=== PATIENT | male | born 1955 | race Caucasian/White ===

== ENCOUNTER → 2017-08-17 | Outpatient (CLI) | payer MEDICAID ==
[2015-10-18 10:34] VITALS: BMI 29.1
[~2017-08-17] MED LIST: ACE325 PO; ACET-1748 PO; AGGRENOX PO; ALPR-698 PO; AMIODIPINE PO; AMLO-96 PO; AMLO-99 PO; AMLO2.5T74 PO; AMOX-559 PO; ASPI-715 PO; ATEN-65 PO; ATR80PT PO; BUPR-127 PO; CAL25 PO; CALC0.5C9 PO; CEFD300C35 PO; CEFU250 PO; CELEXA; CEP500 PO; CIPR-212 PO; CIT20 PO; CLO75 PO; CLON1 PO; COM14R IH; CYC10 PO; CYCL10TA29 PO; DICY20TA70 PO; DIPH-543 PO; DOC100 PO; DONE10TA89 PO; DONE5TAB74 PO; DOXA4TAB57 PO; DUONEB INH; DUT0.5 PO; DUTA0.5C14 PO; ENOX80DI8 SQ; ENOXAPARIN; ESC10 PO; ESZO2TAB30 PO; EZET10TA41 PO; FERR325T24 PO; FLU20 PO; FLUT16SP19 NS; GAB100 PO; GABA-547 PO; GABA-549 PO; GABA300S PO; GLIM1TAB24 PO; GLIM4TAB50 PO; GLY25 PO; HCTZ25 PO; HYDR-3070 PO; HYDR-3072 PO; HYDR-4309 PO; INSU100V24 SQ; IPR14R INH; LANI SUBQ; LEVE-14 PO; LEVE250T63 PO; LEVE500T88 PO; LEVO250T55 PO; LIB PO; LISI-357 PO; LISI2.5T60 PO; LOP2 PO; LOR5/325 PO; MAGN400T37 PO; MAGN500T6 PO; MEC25 PO; MECL-205 PO; METO-1 PO; METO25TA91 PO; METO25TA93 PO; MULT-1335 PO; NYST100040 PO; OFF COUMADIN; OMEP-153 PO; OMEP-218 PO; ONDA4TAB97 PO; OXYGENHOME INH; PAN20 PO; PARO10TA80 PO; PER PO; PHEN120S16 PO; PHENA200 PO; POTA20TA85 PO; POTT20 PO; PRA20 PO; PRAV40TA77 PO; PRE20 PO; PRE5 PO; PRED-1 PO; PRED5ORA PO; PROM5SYR PO; SER50 PO; SERT25TA87 PO; SIMV-42 PO; SODI325T7 PO; SODI650T7 PO; SUCR1TAB51 PO; THIA100T55 PO; TIO18R IH; TIO18R INH; TRAM-420 PO; WAR1 PO; WAR25 PO; WAR5 PO; WARF-1 PO; WARF5TAB23 PO; WARF6TAB13 PO; WARF7.5T13 PO; WARF7.5T26 PO; [UNRECOGNIZED DRUG - CODE] PO; [UNRECOGNIZED DRUG - CODE] PO; iron PO
[2017-08-17 10:57] LABS: PLATELET COUNT, AUTOMATED 95 K/uL (150-450)
== END ==
LOC: LAB 10:16
PROVIDERS: ATTEND Internal Medicine Nephrology
DX: I12.9 Hypertensive chronic kidney disease with stage 1 through stage 4 chronic kidney disease, or unspecified chronic kidney disease (principal); N18.3 Chronic kidney disease, stage 3 (moderate); N25.81 Secondary hyperparathyroidism of renal origin; E11.29 Type 2 diabetes mellitus with other diabetic kidney complication
CPT/HCPCS: 36415; 82040; 82306; 82310; 82374; 82435; 82565; 82947; 83970; 84100; 84132; 84295; 84520; 85025

== ENCOUNTER → 2017-10-04 | Outpatient (CLI) | payer MEDICAID ==
[2015-10-18 10:34] VITALS: BMI 29.1
--- NOTE | 2017-10-04 12:57 | RADIOLOGY IMAGING REPORT ---
FACILITY: [facility] PATIENT NAME: Christian Kay : 1955 MR: [id number] V: [id number] EXAM DATE: ORDERING PHYSICIAN: LOPEZ DOMÍNGUEZ TECHNOLOGIST: Location: [facility] [place] Patient: Christian Kay : 1955 Visit/Account:[id number] Date of Sevice: 10/04/2017 CHEST W/O CONTRAST Provided history: Solitary pulmonary nodule Additional pertinent history: none TECHNIQUE: Spiral scan was obtained from the lower neck through the lung bases without intravenous co ntrast. Source images were reformatted in the coronal and sagittal planes. Additional series performed today: none One of the following dose optimization techniques was utilized in the performance of this exam: Autom ated exposure control; adjustment of the mA and/or kV according to the patient's size; or use of an i terative reconstruction technique. Specific details can be referenced in the facility's radiology CT exam operational policy. COMPARISON STUDIES: 2 view chest radiograph 12/22/15 and single view 01/08/16. Study of 04/19/16 onl y includes a lateral projection. No prior CT. FINDINGS: Lungs / pleura / marjorie: There are multiple geographic areas of indistinct groundglass attenuation sc attered in both lungs more numerous on the right than left, both central and peripheral in both upper and lower lobes. There is no evidence of cavitation. No confluent airspace disease. Superimposed are several nodules in the right upper lobe, all circumscribed and solid. Large disc and on image 14 7 of series 4 measures 4 x 5 mm. Several additional solid nodules right lower lobe, largest image 22 8 measures 6 x 8 mm. Additional scattered solid nodules in the left upper lobe and left lower lobe. Largest located in the posterior left lower lobe, image 262 measuring 6 x 7 mm. Lower neck: 13 mm hypodense mass deep margin right lobe of the thyroid, likely benign. Mediastinum: negative Heart / pericardium: negative Vessels: negative Lymph nodes: negative Body wall: Benign small sebaceous cyst upper left back. Upper abdomen: Lowermost image reveals a water attenuation cyst probably exophytic from the upper po le right kidney, not further clarified. Adrenal glands negative. Bones: negative IMPRESSION: 1. Multifocal patchy areas of groundglass attenuation both lungs. Chronicity is unclear but not juanito latrice evident on 2 view study 01/08/16. Assuming these are acute, this could be seen in the acute pha se of hypersensitivity pneumonitis as well as viral pneumonia, possibly pneumocystis. Chronically, c onsider DIP and much less likely multifocal adenocarcinoma. 2. Multiple scattered noncalcified pulmonary nodules, the largest defined above. No possibly inflam matory in origin, this is concerning for potential metastatic disease. Largest nodule diameter is up to 6 x 8 mm and may be amenable to further assessment with PET if indicated. At a minimum, this req uires a short-term follow-up CT to assess interval change. Report Dictated By: Raza Doyle MD at 10/04/2017 12:25 PM Report E-Signed By: Raza Doyle MD at 10/04/2017 12:52 PM [id number]
== END ==
LOC: CT 09-29 00:53
PROVIDERS: ATTEND Family Medicine
DX: R91.8 Other nonspecific abnormal finding of lung field (principal)
CPT/HCPCS: 71250

== ENCOUNTER → 2017-10-13 | Outpatient (CLI) | payer MEDICAID ==
[2015-10-18 10:34] VITALS: BMI 29.1
== END ==
LOC: LAB 13:35
PROVIDERS: ATTEND Surgery
DX: C44.219 Basal cell carcinoma of skin of left ear and external auricular canal (principal)
CPT/HCPCS: 88305

== ENCOUNTER → 2017-10-31 | Outpatient (REF) | payer MEDICAID ==
[2015-10-18 10:34] VITALS: BMI 29.1
[2017-10-31 12:27] LABS: INR 4.21
== END ==
LOC: ZZSENDIN 12:03
PROVIDERS: ATTEND Physician Assistant
DX: Z51.81 Encounter for therapeutic drug level monitoring (principal); Z79.01 Long term (current) use of anticoagulants
CPT/HCPCS: 85610

== ENCOUNTER 2017-11-09 02:13 | Day surgery (SDC) | payer MEDICAID ==
[2015-10-18 10:34] VITALS: Ht 177.8 cm; Wt 98.0 kg
[~2017-11-09] VITALS: Ht 177.8 cm; Wt 98.0 kg
[~2017-11-09 02:13] MED LIST changes: +CALC0.5C5 PO; +WARF2.5T62 PO
[2017-11-09 06:28] VITALS: BP 151/91
[2017-11-09] MEDS ORDERED: AMPICILLIN/SULBACT (*) 3 GM VL 3 GM in NS(*) 0.9% 100 ML BAG 100 ML IVPB ONE (06:45)
[2017-11-09] MEDS ORDERED: MIDAZOLAM 2 MG/2 ML VIAL IVP PRN (06:45)
[2017-11-09] MEDS ORDERED: LIDOCAINE/SOD BICARB 8.4% SYR ID ONE (06:45)
[2017-11-09] MEDS ORDERED: NORMOSOL R SOLN(*) 1000 ML BAG 1,000 ML IV PRN (06:45)
[2017-11-09 06:46] LABS: INR 1.05
[2017-11-09] MEDS ORDERED: ROPIVACAINE 0.5% 20 ML VIAL ONE (07:04)
[2017-11-09] MEDS ORDERED: LIDO/EPI 1% MDV 1:100,000 20ML INFIL ONE (07:04)
[2017-11-09] MEDS ORDERED: DEXAMETHASONE SOD 4 MG/ML VIAL ONE (07:18)
[2017-11-09] MEDS ORDERED: PROPOFOL EMUL(*) 10MG/ML 20 ML 20 ML ONE (07:18)
[2017-11-09] MEDS ORDERED: LIDOCAINE MPF 1% 5 ML VIAL ONE (07:18)
[2017-11-09] MEDS ORDERED: fentaNYL CITR 100 MCG/2 ML AMP ONE ×2 (07:18→08:09)
[2017-11-09] MEDS ORDERED: ONDANSETRON 4 MG/2 ML VIAL ONE (07:18)
[2017-11-09] MEDS ORDERED: KETAMINE HCL 200 MG/20 ML MDV ONE (07:21)
[2017-11-09] MEDS ORDERED: GLYCOPYRROLATE 0.2MG/ML 1 ML INJ ONE (07:30)
[2017-11-09] MEDS ORDERED: BACITRACIN OINT 15 GM TUBE TP ONE (08:27)
[2017-11-09] MEDS ORDERED: DOCU-416 PO (09:04)
[2017-11-09] MEDS ORDERED: OXYC-854 PO (09:04)
--- NOTE | 2017-11-09 09:07 | Short(Outpt) Discharge Summary ---
Discharge Summary Reason for Hosp/Final Diag: (1) Basal cell carcinoma of left ear Status: Chronic Hospital Course & Plan: Partial left ear excision for recurrent left ear BCC with invasion into underlying cartilage. Departure Discharge to: Home, Self Care Discharge Instructions Home Meds Active Scripts Docusate Sodium (COLACE) 100 Mg Capsule, 1 CAP PO BID, #30 CAP 0 Refills TAKE WITH A FULL GLASS OF WATER Prov:MINA LO MD 11/09/17 Oxycodone Hcl/Acet 5/325 Mg (ENDOCET 5-325 TABLET) 1 Each Tablet, 1 TAB PO Q4H Y for PAIN, #20 TAB 0 Refills Prov:MINA LO MD 11/09/17 Fluticasone Prop 50 Mcg Ns (FLONASE 50 MCG NS) 16 Gm [place].susp, 1 SPRAY NS BID , #1 BOT Prov:RAHEEM STEIN 04/19/16 Reported Medications Amlodipine Besylate (AMLODIPINE BESYLATE) 10 Mg Tablet, 1 TAB PO QDAY, TAB 11/03/17 Ezetimibe (ZETIA) 10 Mg Tablet, PO QDAY, TAB 11/03/17 Calcitriol (CALCITRIOL) 0.5 Mcg Capsule, PO AND MON, CAPSULE 11/03/17 Warfarin Sodium (COUMADIN) 2.5 Mg Tablet, 2.5 MG PO QT AND Monday11/03/17 Warfarin Sodium (COUMADIN) 5 Mg Tablet, 5 MG PO DAILY take 5 mg every day except MONDAY AND Monday10/20/15 Ferrous Sulfate (IRON) 325 Mg Tablet, 325 MG PO DAILY 09/16/15 Oxygen (OXYGEN) Inha, 2 L INH Y for SHORTNESS OF BREATH, L 09/16/15 Sodium Bicarbonate (SODIUM BICARBONATE) 325 Mg Tablet, 650 MG PO BID 02/06/15 Atorvastatin (LIPITOR) 80 Mg Tab, 1 TAB PO QDAY, TAB 10/31/14 Paroxetine Hcl (PAROXETINE HCL) 10 Mg Tablet, 40 MG PO QDAY 06/12/14 Gabapentin (GABAPENTIN) 300 Mg Capsule, 300 MG PO TID, CAPSULE 06/12/14 Dicyclomine Hcl (DICYCLOMINE HCL) 20 Mg Tablet, 20 MG PO QID 11/19/13 Donepezil Hcl (ARICEPT) 10 Mg Tablet, 10 MG PO QDAY, TAB 11/19/13 Insulin Lispro 100 Un/Ml Vial (HUMALOG 100 U/ML VIAL) 100 Unit/1 Ml Vial, 25 UNIT SQ BEFORE MEALS, VIAL 11/19/13 Insulin Glargine (LANTUS) 100 Unit/Ml Soln, 50 UNIT SUBQ QHS 11/19/13 Levetiracetam (Keppra) 500 Mg Tablet, 500 MG PO QID, 0 Refills 02/03/11 Multivitamins W-Minerals (Multiple Vitamin) 1 Tab Tablet, 1 TAB PO DAILY, 0 Refills 09/03/10 Potassium Chloride (Klor-Con M20) 20 Meq Tab.prt.sr, 20 MEQ PO QAM, 0 Refills 09/03/10 Omeprazole (Omeprazole) 20 Mg Tablet.dr, 40 MG PO QAM, 0 Refills 02/03/11 Discontinued Reported Medications Warfarin Sodium (COUMADIN) 7.5 Mg Tablet, 7.5 MG PO QSAT take 7.5 mg every Monday10/20/15 Amlodipine Besylate (AMLODIPINE BESYLATE) 5 Mg Tablet, 1 TAB PO QDAY, TAB 10/17/15 Dutasteride (AVODART) 0.5 Mg Capsule, 0.5 MG PO QDAY, CAPSULE 02/06/15 Tramadol Hcl (TRAMADOL HCL) 50 Mg Tablet, 50-100 MG PO PRN 02/06/15 Gabapentin (GABAPENTIN) 100 Mg Capsule, 200 MG PO BID, CAPSULE 10/31/14 Insulin Lispro 100 Un/Ml Vial (HUMALOG 100 U/ML VIAL) 100 Unit/1 Ml Vial, 14 UNIT SQ QDAY, VIAL 06/12/14 Prednisone 10 Mg Tab (PREDNISONE 10 MG TAB) 10 Mg Tablet, 5 MG PO QDAY 11/19/13 Follow up Referrals: General Surgery - 11/21/17 @ Surgery, General with Mina Lo Md You have a follow up appointment scheduled with Dr. Lo on 11/21/17, at 4:30pm. Diet: Regular Activity: As Tolerated Special Instructions: Leave the dressings on your head and ear until 11/12/17, then you can remove all dressings and Christian can start showering. Do not scrub the ear, just let soap/shampoo and water run over the ear and gently pat dry when done. Apply antibiotic ointment to the incision/sutures once each day and loosely cover with guaze or if preferred, and if Christian can avoid rubbing/scratching his ear, you could leave it open to air but cover it if Christian will mess with his ear. MINA LO MD Nov 09, 2017 09:07
--- NOTE | 2017-11-09 09:14 | Post Operative Progress Note ---
Post Operative Progress Note Date: Nov 09, 2017 Time: 09:07 Surgeon: Comfort Dictation number: [id number] Anesthesia: LMA by Dr. Minor Pre-Op Diagnosis: Recurrent left ear basal cell skin cancer Post-Op Diagnosis: TANJA, with deep invasion into underlying cartilage Findings: C/W dx Procedure(s): Wide excision of left ear skin cancer with partial left ear removal Specimen Removed:(May be N/A): Left ear, frozen sections of margins Complications: None Fluids: see anesthesia record Estimated Blood Loss: Minimal Date OP Note Dictated: Nov 09, 2017 Time OP Note Dictated: 09:08 LOPEZ LO MD Nov 09, 2017 09:14
[2017-11-09] MEDS ORDERED: AMOX-559 PO (09:53)
[2017-11-09 10:00] VITALS: BP 150/97
[2017-11-09 10:15] VITALS: BP 149/95
[2017-11-09 10:28] VITALS: BP 146/93
[2017-11-09 10:30] VITALS: BP 126/83
--- NOTE | 2017-11-09 13:54 | OPERATIVE REPORT 1 ---
EVENT DATE: November 09, 2017 SURGEON: Mina Moyer M.D. ANESTHESIOLOGIST: Marco Antonio Winter M.D. ANESTHESIA: LMA PREOPERATIVE DIAGNOSIS Recurrent left ear basal cell skin cancer. POSTOPERATIVE DIAGNOSIS Recurrent left ear basal cell skin cancer. PROCEDURE PERFORMED Wide excision of left ear skin cancer with partial left ear removal. COMPLICATIONS None. CONDITION Stable. ESTIMATED BLOOD LOSS Minimal. INDICATIONS This is a 62-year-old gentleman who came to my office with a lesion on his left ear that was constantly draining and bothering him. I had removed a basal cell skin cancer five or six years ago from his left year and he had been doing fine up until several months ago. The lesion was getting bigger. I performed several punch biopsies in the office along the length of the skin lesion, which was quite long, involving a good portion just lateral to the antihelix of his ear. All of the punch biopsies revealed cancer on the entire length of the skin lesion. I then consented him for wide excision of the skin cancer and possible partial ear removal and possible skin grafting to treat this. DESCRIPTION OF PROCEDURE The patient was brought to the operating room and placed supine on the operating table. LMA anesthesia was administered and his left ear, neck and supraclavicular region were prepped and draped in sterile fashion. Time-out was completed. I anesthetized the skin of his left ear with 0.5% bupivacaine plain. I then marked the skin around the grossly visible skin cancer and then made a skin incision in this area with several millimeters of margin on all sides. I then raised the skin up off the underlying subcutaneous tissue and cartilage and when I got to the superior portion where it was ulcerated it appeared to go down into the cartilage as well. I pulled the skin off and this was placed in preservative and sent to pathology. I then removed the cartilage of the crura of the antihelix, which had grossly suspicious cancer involvement. I removed all grossly involved cancer from the underlying cartilage that I could find. Once I got down to what looked like normal cartilage, I sent margins of cartilage and skin from all sides and eventually found that they were all negative. The wound was well vascularized and bleeding but so much of the skin had to be removed and the way the ear was configured a simple graft would not have covered it. I then removed the portion of the antihelix cartilage as well as the cartilage of the helix and lifted skin flaps. After the cartilage was removed, I could easily close the wound. I irrigated and dried the wound and then closed it with running 4-0 Prolene sutures and then cleaned and dried his ear and applied Bacitracin antibiotic ointment to the entire incision and sutures. Basically, the entire posterior third of his ear was removed with this resection to get adequate margins from the invasive basal cell skin cancer. After the entire incision was sutured and coated with antibiotic ointment, I covered the ear with gauze and fluffs and then placed a net dressing on his hand to secure the gauze in place. He was awakened from LMA and transported to the recovery room in stable condition. He tolerated the procedure without any apparent problems. CANDELARIA
== END 2017-11-09 09:46 | disposition home or self-care (01) ==
LOC: OR 02:13
PROVIDERS: ATTEND Surgery
DX: C44.219 Basal cell carcinoma of skin of left ear and external auricular canal (principal); E11.9 Type 2 diabetes mellitus without complications; I10 Essential (primary) hypertension; Z79.01 Long term (current) use of anticoagulants
CPT/HCPCS: 11644; 36415; 36416; 82948; 85610; 88305; 88331; 88332; J0295; J1100; J2001; J2405; J2704; J2795; J3010; J3490; J7050

== ENCOUNTER 2017-12-18 10:37 | Emergency (ER) | payer MEDICAID ==
[2015-10-18 10:34] VITALS: Wt 97.5 kg
[~2017-12-18 10:37] MED LIST changes: +DOCU-416 PO; +OXYC-854 PO
--- NOTE | 2017-12-18 11:00 | ER Report ---
History and Physical Time Seen By MD: 11:00 Hx. of Stated Complaint: PT HAS BEEN VOMITING SINCE YESTERDAY HPI/ROS CHIEF COMPLAINT: Abdominal pain, vomiting HISTORY OF PRESENT ILLNESS: 62-year-old male patient presents to emergency room with complaint of abdominal pain and vomiting. Patient states he has not felt well for the last few days. Patient states yesterday he was having significant amounts of pain. He and his then gave him some Tylenol and ibuprofen to help with the pain. states that the goal was to get him to sleep and that hopefully he would feel better. They state that until 4:00 this morning they've given him 30 tablets of the extra strength Tylenol, 20 tablets of ibuprofen. He states that he feels even worse today. He states he's not been able to keep any food down. Patient states he is diabetic. He is concerned that he may have overdosed with Tylenol and ibuprofen. Patient is also concerned that he is not getting any better. Patient states that he did not eat at all on Monday stat ing that he was not hungry. He believes that could be the underlying cause of him having the abdominal pain and vomiting yesterday, that his blood sugar has gotten too low. REVIEW OF SYSTEMS: Respiratory: No cough, no dyspnea. Cardiovascular: No chest pain, no palpitations. Gastrointestinal: As noted above Musculoskeletal: No back pain. Allergies: Coded Allergies: zolpidem (Verified Adverse Reaction, Severe, CONFUSION AND SUICIDAL IDEATION, 04/19/16) confusion and suicide ideation per patient report Home Meds Active Scripts Ondansetron (ZOFRAN ODT) 4 Mg Tab.rapdis, 4 MG PO Q6H PRN for NAUSEA/VOMITING, #20 TAB.TAVARES Prov:RAHEEM STEIN 12/18/17 Hydrocodone Bit/Acetaminophen (HYDROCODON-ACETAMINOPHEN 5-325) 1 Each Tablet, 1 EACH PO Q4-6H PRN for PAIN, #12 TAB Prov:RAHEEM STEIN 12/18/17 Oxycodone Hcl/Acet 5/325 Mg (ENDOCET 5-325 TABLET) 1 Each Tablet, 1 TAB PO Q4H PRN for PAIN, #20 TAB 0 Refills Prov:LOPEZ LO MD 11/21/17 Amoxicillin/Pot Clav 875-125 Mg Tab (AUGMENTIN 875-125 TABLET) 1 Each Tablet, 1 TAB PO BID, #14 TAB 0 Refills take 1 tablet twice each day until gone (total of 7 days) Prov:LOPEZ LO MD 11/09/17 Docusate Sodium (COLACE) 100 Mg Capsule, 1 CAP PO BID, #30 CAP 0 Refills TAKE WITH A FULL GLASS OF WATER Prov:LOPEZ LO MD 11/09/17 Fluticasone Prop 50 Mcg Ns (FLONASE 50 MCG NS) 16 Gm [place].susp, 1 SPRAY NS BID, #1 BOT Prov:SARITARAHEEM FNP 04/19/16 Reported Medications Tramadol Hcl (TRAMADOL HCL) 50 Mg Tablet, 50-100 MG PO PRN, TAB 12/18/17 Prednisone 10 Mg Tab (PREDNISONE 10 MG TAB) 10 Mg Tablet, 5 MG PO QDAY, TAB 12/18/17 Amlodipine Besylate (AMLODIPINE BESYLATE) 10 Mg Tablet, 1 TAB PO QDAY, TAB 11/03/17 Ezetimibe (ZETIA) 10 Mg Tablet, PO QDAY, TAB 11/03/17 Calcitriol (CALCITRIOL) 0.5 Mcg Capsule, PO AND MON, CAPSULE 11/03/17 Warfarin Sodium (COUMADIN) 2.5 Mg Tablet, 2.5 MG PO QT AND Monday11/03/17 Warfarin Sodium (COUMADIN) 5 Mg Tablet, 5 MG PO DAILY take 5 mg every day except MONDAY AND Monday10/20/15 Ferrous Sulfate (IRON) 325 Mg Tablet, 325 MG PO DAILY 09/16/15 Oxygen (OXYGEN) Inha, 2 L INH PRN for SHORTNESS OF BREATH, L 09/16/15 Sodium Bicarbonate (SODIUM BICARBONATE) 325 Mg Tablet, 650 MG PO BID 02/06/15 Atorvastatin (LIPITOR) 80 Mg Tab, 1 TAB PO QDAY, TAB 10/31/14 Paroxetine Hcl (PAROXETINE HCL) 10 Mg Tablet, 40 MG PO QDAY 06/12/14 Gabapentin (GABAPENTIN) 300 Mg Capsule, 300 MG PO TID, CAPSULE 06/12/14 Dicyclomine Hcl (DICYCLOMINE HCL) 20 Mg Tablet, 20 MG PO QID 11/19/13 Donepezil Hcl (ARICEPT) 10 Mg Tablet, 10 MG PO QDAY, TAB 11/19/13 Insulin Lispro 100 Un/Ml Vial (HUMALOG 100 U/ML VIAL) 100 Unit/1 Ml Vial, 25 UNIT SQ BEFORE MEALS, VIAL 11/19/13 Insulin Glargine (LANTUS) 100 Unit/Ml Soln, 50 UNIT SUBQ QHS 11/19/13 Levetiracetam (Keppra) 500 Mg Tablet, 500 MG PO QID, 0 Refills 02/03/11 Multivitamins W-Minerals (Multiple Vitamin) 1 Tab Tablet, 1 TAB PO DAILY, 0 Refills 09/03/10 Potassium Chloride (Klor-Con M20) 20 Meq Tab.prt.sr, 20 MEQ PO QAM, 0 Refills 09/03/10 Omeprazole (Omeprazole) 20 Mg Tablet.dr, 40 MG PO QAM, 0 Refills 02/03/11 Past Medical/Surgical History Patient has a past medical history of seizures, CVA, dementia, seizures, angina, DVT, hypertension, hyperlipidemia, asthma, pulmonary embolism, blood in stool, anemia, reflux, chronic kidney disease, back pain, difficulty swallowing occasionally, diabetes, lupus anticoagulant, alcohol abuse, depression, skin cancer. Patient has a surgical history of cholecystectomy, colonoscopy. Patient has a family medical history of cancer, stroke. Reviewed Nurses Notes: Yes Hx Smoking: No Smoking Status: Never Smoker Exposure to Second Hand Smoke?: No Hx Substance Use Disorder: No Hx Alcohol Use: No (20 YRS AGO) Constitutional Vital Sign - Last 24 Hours 12/18/17 12/18/17 12/18/17 12/18/17 10:42 10:53 11:00 11:07 Temp 97.9 Pulse 109 103 Resp 20 B/P (MAP) 184/92 (122) 184/92 150/88 (108) Pulse Ox 96 95 O2 Delivery Room Air 12/18/17 12/18/17 12/18/17 12/18/17 11:12 11:30 11:42 12:00 Pulse 100 97 B/P (MAP) 155/86 (109) 154/83 (106) Pulse Ox 95 94 12/18/17 12/18/17 12/18/17 12/18/17 12:30 12:42 13:00 13:05 Pulse 102 B/P (MAP) 147/85 (105) 162/85 (110) Pulse Ox 93 91 12/18/17 12/18/17 12/18/17 12/18/17 13:30 13:35 14:00 14:05 Pulse 114 110 B/P (MAP) 153/92 (112) 147/85 (105) Pulse Ox 91 91 Physical Exam General Appearance: The patient is alert, has no immediate need for airway protection and no current signs of toxicity. Respiratory: Chest is non tender, lungs are clear to auscultation. Cardiac: regular rate and rhythm Gastrointestinal: Abdomen is soft and tender in the right upper quadrant, no masses, bowel sounds normal. Musculoskeletal: Neck: Neck is supple and non tender. Extremities have full range of motion and are non tender. Skin: No rashes or lesions. DIFFERENTIAL DIAGNOSIS: After history and physical exam differential diagnosis was considered for abdominal pain including but not limited to appendicitis, cholecystitis, gastritis and urinary tract infection. Included in this differential is acute kidney failure, liver insult secondary to Tylenol overdose. Medical Decision Making Data Points Result Diagram: 12/18/17 1045 12/18/17 1045 Laboratory Hematology Test 12/18/17 10:45 Red Blood Count 5.01 M/uL (4.00-5.60) Mean Corpuscular Volume 88.2 fL (80.0-96.0) Mean Corpuscular Hemoglobin 29.7 pg (26.0-33.0) Mean Corpuscular Hemoglobin Concent 33.6 g/dL (32.0-36.0) Red Cell Distribution Width 15.3 % (11.5-14.5) Mean Platelet Volume 8.3 fL (7.2-11.1) Neutrophils (%) (Auto) 87.5 % (39.4-72.5) Lymphocytes (%) (Auto) 6.3 % (17.6-49.6) Monocytes (%) (Auto) 4.8 % (4.1-12.4) Eosinophils (%) (Auto) 0.2 % (0.4-6.7) Basophils (%) (Auto) 1.2 % (0.3-1.4) Nucleated RBC Relative Count (auto) 0.0 /100WBC Neutrophils # (Auto) 8.8 K/uL (2.0-7.4) Lymphocytes # (Auto) 0.6 K/uL (1.3-3.6) Monocytes # (Auto) 0.5 K/uL (0.3-1.0) Eosinophils # (Auto) 0.0 K/uL (0.0-0.5) Basophils # (Auto) 0.1 K/uL (0.0-0.1) Nucleated RBC Absolute Count (auto) 0.00 K/uL Sodium Level 138 mmol/L (137-145) Potassium Level 3.3 mmol/L (3.5-5.0) Chloride Level 103 mmol/L (98-107) Carbon Dioxide Level 15 mmol/L (22-30) Blood Urea Nitrogen 17 mg/dl (9-21) Creatinine 2.40 mg/dl (0.66-1.25) Glomerular Filtration Rate Calc 27.4 Random Glucose 260 mg/dl (75-110) Calcium Level 9.2 mg/dl (8.4-10.2) Total Bilirubin 0.5 mg/dl (0.2-1.3) Aspartate Amino Transf (AST/SGOT) 55 U/L (0-35) Alanine Aminotransferase (ALT/SGPT) 54 U/L (0-56) Alkaline Phosphatase 194 U/L (0-126) C-Reactive Protein 0.8 mg/dl (<1.0) Total Protein 7.1 g/dl (6.3-8.2) Albumin 4.5 g/dl (3.5-5.0) Amylase Level 58 U/L (0-110) Lipase 19 U/L (23-300) Acetaminophen Level < 10 ug/ml Chemistry Test 12/18/17 10:45 White Blood Count 10.1 k/uL (4.5-11.0) Red Blood Count 5.01 M/uL (4.00-5.60) Hemoglobin 14.9 g/dL (14.0-18.0) Hematocrit 44.2 % (42.0-52.0) Mean Corpuscular Volume 88.2 fL (80.0-96.0) Mean Corpuscular Hemoglobin 29.7 pg (26.0-33.0) Mean Corpuscular Hemoglobin Concent 33.6 g/dL (32.0-36.0) Red Cell Distribution Width 15.3 % (11.5-14.5) Platelet Count 166 K/uL (150-450) Mean Platelet Volume 8.3 fL (7.2-11.1) Neutrophils (%) (Auto) 87.5 % (39.4-72.5) Lymphocytes (%) (Auto) 6.3 % (17.6-49.6) Monocytes (%) (Auto) 4.8 % (4.1-12.4) Eosinophils (%) (Auto) 0.2 % (0.4-6.7) Basophils (%) (Auto) 1.2 % (0.3-1.4) Nucleated RBC Relative Count (auto) 0.0 /100WBC Neutrophils # (Auto) 8.8 K/uL (2.0-7.4) Lymphocytes # (Auto) 0.6 K/uL (1.3-3.6) Monocytes # (Auto) 0.5 K/uL (0.3-1.0) Eosinophils # (Auto) 0.0 K/uL (0.0-0.5) Basophils # (Auto) 0.1 K/uL (0.0-0.1) Nucleated RBC Absolute Count (auto) 0.00 K/uL Glomerular Filtration Rate Calc 27.4 Calcium Level 9.2 mg/dl (8.4-10.2) Total Bilirubin 0.5 mg/dl (0.2-1.3) Aspartate Amino Transf (AST/SGOT) 55 U/L (0-35) Alanine Aminotransferase (ALT/SGPT) 54 U/L (0-56) Alkaline Phosphatase 194 U/L (0-126) C-Reactive Protein 0.8 mg/dl (<1.0) Total Protein 7.1 g/dl (6.3-8.2) Albumin 4.5 g/dl (3.5-5.0) Amylase Level 58 U/L (0-110) Lipase 19 U/L (23-300) Acetaminophen Level < 10 ug/ml Toxicology Test 12/18/17 10:45 Acetaminophen Level < 10 ug/ml EKG/Imaging Imaging ACUTE ABDOMEN SERIES 3 VIEW HISTORY: ABD PAIN ABDOMINAL SERIES with 3 abdominal films and chest film. No comparisons FINDINGS: Nonspecific bowel gas pattern. No obstructive change. No abnormal mass lesions or calcifications. Bony structures unremarkable. Lumbar DJD changes noted. Status post cholecystectomy Chest film demonstrates no infiltrates or consolidations. No effusions. No parenchymal mass lesions. Cardiac and hilar structures well-maintained. Bony structures unremarkable. IMPRESSION: 1. Unremarkable abdominal series. 2. Negative chest Report Dictated By: Denver Chahal MD at 12/18/2017 1:34 PM Report E-Signed By: Denver Chahal MD at 12/18/2017 1:36 PM ED Course/Re-evaluation ED Course Patient was admitted to an exam room, history and physical were obtained. Differential diagnoses were considered. On examination patient had no obvious abdominal tenderness, bowel sounds were active. Patient had an IV started, received a liter of normal saline, 4 mg Zofran. A CBC, CMP, CRP, Tylenol level were checked. Patient has stated he had taken 30 extra strength Tylenol than the last 24 hours. I was expecting the Tylenol level to be through the roof. Patient had a negative Tylenol level, CBC had a white count of 10,000, CMP showed a creatinine of 2.4, plus time his creatinine was checked was 2.1, and a normal CRP. The patient I believe is very fortunate that he had been vomiting I don't believe that he ingested any of the Tylenol. He did receive a loading dose of Mucomyst. An acute abdominal x-ray was done which was read by the radiologist as unremarkable. I discussed the findings with the patient and his . Patient states she's feeling significantly better at this time. We did give him a by mouth challenge and he was able to drink approximately 12 ounces of water with no emesis. Patient is both feel that he is able to go home. We will go ahead and discharge him home this time. We will give him a prescription for Zofran to help prevent vomiting as well as some hydrocodone with Tylenol to help with pain. I did discuss with him that there to not take any additional Tylenol with the pain medication. They verbalized understanding and agreement with plan. I would like him follow-up with her primary care provider the next 3-4 days. Decision to Disposition Date: Dec 18, 2017 Decision to Disposition Time: 14:15 Depart Departure Latest Vital Signs Vital Signs Date Time Temp Pulse Resp B/P (MAP) Pulse Ox O2 Delivery O2 Flow Rate FiO2 12/18/17 14:05 110 91 12/18/17 14:00 147/85 (105) 12/18/17 10:53 97.9 20 Room Air Impression: Primary Impression: Gastroenteritis Condition: Improved Disposition: HOME OR SELF-CARE New Scripts Ondansetron (ZOFRAN ODT) 4 Mg Tab.rapdis 4 MG PO Q6H PRN for NAUSEA/VOMITING, #20 TAB.TAVARES Prov: RAHEEM STEIN 12/18/17 Hydrocodone Bit/Acetaminophen (HYDROCODON-ACETAMINOPHEN 5-325) 1 Each Tablet 1 EACH PO Q4-6H PRN for PAIN, #12 TAB Prov: RAHEEM STEIN 12/18/17 Patient Instructions: Gastroenteritis (ED) Additional Instructions: Increase fluid intake. Clear liquid diet for the next 24-48 hours. After that you may advance diet as tolerated starting with complex carbohydrates; rice, bread or pasta. Follow up with your primary care provider in the next 3-4 days. Return to the ER if condition worsens. You may take over the counter Pepto Bismol as needed for cramping, diarrhea and discomfort. Keep close eye on your blood sugars. RAHEEM STEIN Dec 18, 2017 11:00
[2017-12-18] MEDS ORDERED: TRAM-420 PO (11:06)
[2017-12-18] MEDS ORDERED: NS(*) 0.9% 1000 ML BAG 1,000 ML IV ONE (11:06)
[2017-12-18] MEDS ORDERED: PRED-1 PO (11:06)
[2017-12-18 11:35] LABS: PLATELET COUNT, AUTOMATED 166 K/uL (150-450)
[2017-12-18] MEDS ORDERED: ACETYLCYS IV ONE (11:35)
[2017-12-18] MEDS ORDERED: D5W IV ONE (11:35)
[2017-12-18] MEDS ORDERED: ONDANSETRON 4 MG/2 ML VIAL IVP ONE (12:10)
--- NOTE | 2017-12-18 13:40 | RADIOLOGY IMAGING REPORT ---
FACILITY: [facility] PATIENT NAME: Christian Kay : 1955 MR: [id number] V: [id number] EXAM DATE: ORDERING PHYSICIAN: RAHEEM STEIN TECHNOLOGIST: Location: [facility] [place] Patient: Christian Kay : 1955 Visit/Account:[id number] Date of Sevice: 12/18/2017 ACUTE ABDOMEN SERIES 3 VIEW HISTORY: ABD PAIN ABDOMINAL SERIES with 3 abdominal films and chest film. No comparisons FINDINGS: Nonspecific bowel gas pattern. No obstructive change. No abnormal mass lesions or calcifications. Bon y structures unremarkable. Lumbar DJD changes noted. Status post cholecystectomy Chest film demonstrates no infiltrates or consolidations. No effusions. No parenchymal mass lesions. Cardiac and hilar structures well-maintained. Bony structures unremarkable. IMPRESSION: 1. Unremarkable abdominal series. 2. Negative chest Report Dictated By: Denver Chahal MD at 12/18/2017 1:34 PM Report E-Signed By: Denver Chahal MD at 12/18/2017 1:36 PM WSN:[id number]
[2017-12-18 14:00] VITALS: BP 147/85
[2017-12-18] MEDS ORDERED: HYDR-385 PO ×2 (14:13→14:27)
[2017-12-18] MEDS ORDERED: ONDA4TAB PO ×2 (14:13→14:27)
== END 2017-12-18 14:26 | disposition home or self-care (01) ==
LOC: ER 10:51
DX: K52.9 Noninfective gastroenteritis and colitis, unspecified (principal); E11.9 Type 2 diabetes mellitus without complications
CPT/HCPCS: 36416; 74022; 82150; 82948; 83690; 85025; 86140; 96361; 96365; 96375; 99284; G0480; J0132; J2405; J7030; J7060; 80329; 82040; 82247; 82310; 82374; 82435; 82565; 82947; 84075; 84132; 84155; 84295; 84450; 84460; 84520

== ENCOUNTER → 2018-01-16 | Outpatient (REF) | payer MEDICARE, MEDICAID ==
[2015-10-18 10:34] VITALS: BMI 29.1
[~2018-01-16] MED LIST changes: +AMLO-111 PO; +AMLO-113 PO; -AMLO-96 PO; -AMLO-99 PO; +HYDR-385 PO; +ONDA4TAB PO
== END ==
LOC: ZZSENDIN 14:51
PROVIDERS: ATTEND Family Medicine
DX: N18.3 Chronic kidney disease, stage 3 (moderate) (principal)
CPT/HCPCS: 82310; 83970

== ENCOUNTER → 2018-02-27 | Outpatient (CLI) | payer MEDICARE, MEDICAID ==
[2015-10-18 10:34] VITALS: BMI 29.1
[~2018-02-27] MED LIST changes: -HYDR-4309 PO; +HYDR-653 PO
[2018-02-27 11:43] LABS: INR 1.52
== END ==
LOC: LAB 10:48
PROVIDERS: ATTEND Family Medicine
DX: D68.8 Other specified coagulation defects (principal)
CPT/HCPCS: 36415; 85610

== ENCOUNTER 2018-05-03 10:33 | Inpatient (IN) | payer MEDICARE, MEDICAID ==
[2015-10-18 10:34] VITALS: Wt 90.9 kg
[~2018-05-03 10:33] MED LIST changes: -AMLO-111 PO; -AMLO-113 PO; +AMLO-125 PO; +AMLO-127 PO
--- NOTE | 2018-05-03 10:58 | ER Report ---
History and Physical Time Seen By MD: 10:54 Hx. of Stated Complaint: PT WAS AT [facility], FELL AND HIT HEAD. STATES HE HAS HAD TWO FALLS IN THE LAST WEEK. HAS BEEN GETTING DIZZY WHEN STANDING HPI/ROS CHIEF COMPLAINT: Fall HISTORY OF PRESENT ILLNESS: Migdalia a 63-year-old male who presents to the emergency department for a fall. Patient states he became dizzy while in the bathroom at [facility], stood up and lost his balance and fell forward striking his face on the toilet. Patient states he did have a positive loss of consciousness, very brief. Patient also states that he has had increased dizziness over the past 1-2 weeks. He also had a fall about 7 days ago striking his forehead on a chair. Patient is normally unsteady, but worsening over the last couple weeks. No nausea or vomiting. Mild frontal headache. No chest pain or shortness of breath. No fevers or chills. Does have a bruise and a small unsuturable lacer ation to the bridge of the nose. REVIEW OF SYSTEMS: Constitutional: No fever, no chills. Eyes: No discharge. ENT: No sore throat. Cardiovascular: No chest pain, no palpitations. Respiratory: No cough, no shortness of breath. Gastrointestinal: No abdominal pain, no vomiting. Genitourinary: No hematuria. Musculoskeletal: As above. Skin: As above. Neurological: As above. Allergies: Coded Allergies: zolpidem (Verified Adverse Reaction, Severe, CONFUSION AND SUICIDAL IDEATION, 04/19/16) confusion and suicide ideation per patient report Home Meds Active Scripts Ondansetron (ZOFRAN ODT) 4 Mg Tab.rapdis, 4 MG PO Q6H PRN for NAUSEA/VOMITING, #20 TAB.TAVARES Prov:RAHEEM STEIN DIRECTOR DIGITAL COMMUNICATIONS 12/18/17 Fluticasone Prop 50 Mcg Ns (FLONASE 50 MCG NS) 16 Gm [place].susp, 1 SPRAY NS BID, #1 BOT Prov:RAHEEM STEIN [facility] 04/19/16 Reported Medications Warfarin Sodium (WARFARIN SODIUM) 5 Mg Tablet, 5 MG PO SuTuThSa, TAB 05/03/18 Warfarin Sodium (WARFARIN SODIUM) 5 Mg Tablet, 2.5 MG PO MOWEDFRI, TAB 05/03/18 Paroxetine Hcl (PAXIL) 20 Mg Tablet, 40 MG PO QDAY, TAB 05/03/18 Calcitriol (CALCITRIOL) 0.5 Mcg Capsule, PO DIRECTED, CAPSULE MWF 11/03/17 Ferrous Sulfate (IRON) 325 Mg Tablet, 325 MG PO DAILY 09/16/15 Oxygen (OXYGEN) Inha, 2 L INH PRN for SHORTNESS OF BREATH, L 09/16/15 Sodium Bicarbonate (SODIUM BICARBONATE) 325 Mg Tablet, 650 MG PO BID 02/06/15 Atorvastatin (LIPITOR) 80 Mg Tab, 1 TAB PO HS, TAB 10/31/14 Insulin Lispro 100 Un/Ml Vial (HUMALOG 100 U/ML VIAL) 100 Unit/1 Ml Vial, 25 UNIT SQ BEFORE MEALS, VIAL 11/19/13 Insulin Glargine (LANTUS) 100 Unit/Ml Soln, 50 UNIT SUBQ QHS 11/19/13 Levetiracetam (Keppra) 500 Mg Tablet, 500 MG PO QID, 0 Refills 02/03/11 Multivitamins W-Minerals (Multiple Vitamin) 1 Tab Tablet, 1 TAB PO DAILY, 0 Refills 09/03/10 Omeprazole (Omeprazole) 20 Mg Tablet.dr, 40 MG PO QAM, 0 Refills 02/03/11 Discontinued Reported Medications Tramadol Hcl (TRAMADOL HCL) 50 Mg Tablet, 50-100 MG PO PRN, TAB 12/18/17 Prednisone 10 Mg Tab (PREDNISONE 10 MG TAB) 10 Mg Tablet, 5 MG PO QDAY, TAB 12/18/17 Amlodipine Besylate (AMLODIPINE BESYLATE) 10 Mg Tablet, 1 TAB PO QDAY, TAB 11/03/17 Ezetimibe (ZETIA) 10 Mg Tablet, PO QDAY, TAB 11/03/17 Warfarin Sodium (COUMADIN) 2.5 Mg Tablet, 2.5 MG PO QT AND Monday11/03/17 Warfarin Sodium (COUMADIN) 5 Mg Tablet, 5 MG PO DAILY take 5 mg every day except MONDAY AND Monday10/20/15 Paroxetine Hcl (PAROXETINE HCL) 10 Mg Tablet, 40 MG PO QDAY 06/12/14 Gabapentin (GABAPENTIN) 300 Mg Capsule, 300 MG PO TID, CAPSULE 06/12/14 Dicyclomine Hcl (DICYCLOMINE HCL) 20 Mg Tablet, 20 MG PO QID 11/19/13 Donepezil Hcl (ARICEPT) 10 Mg Tablet, 10 MG PO QDAY, TAB 11/19/13 Potassium Chloride (Klor-Con M20) 20 Meq Tab.prt.sr, 20 MEQ PO QAM, 0 Refills 09/03/10 Discontinued Scripts Hydrocodone Bit/Acetaminophen (HYDROCODON-ACETAMINOPHEN 5-325) 1 Each Tablet, 1 EACH PO Q4-6H PRN for PAIN, #12 TAB Prov:SARITARAHEEM DIRECTOR DIGITAL COMMUNICATIONS 12/18/17 Oxycodone Hcl/Acet 5/325 Mg (ENDOCET 5-325 TABLET) 1 Each Tablet, 1 TAB PO Q4H PRN for PAIN, #20 TAB 0 Refills Prov:LOPEZ LO MD 11/21/17 Amoxicillin/Pot Clav 875-125 Mg Tab (AUGMENTIN 875-125 TABLET) 1 Each Tablet, 1 TAB PO BID, #14 TAB 0 Refills take 1 tablet twice each day until gone (total of 7 days) Prov:LOPEZ LO MD 11/09/17 Docusate Sodium (COLACE) 100 Mg Capsule, 1 CAP PO BID, #30 CAP 0 Refills TAKE WITH A FULL GLASS OF WATER Prov:LOPEZ LO MD 11/09/17 Past Medical/Surgical History The patient has a past medical and surgical history of seizures, CVA 2, dementia, tonic-clonic seizures, angina, DVT, hypertension, hypertension, hypercholesterolemia, shortness of breath, chronic oxygen use, asthma, pulmonary embolus, frequent diarrhea, colonoscopy, anemia, GERD, elevated LFTs, poor renal function, arthritis, back pain, full dentures, glasses, difficulty swallowing, insulin-dependent diabetic, lupus anticoagulant, hematocrit brain injury, anxiety, suicide attempt, skin cancer, cholecystectomy. Reviewed Nurses Notes: Yes Hx Smoking: No Smoking Status: Never Smoker Exposure to Second Hand Smoke?: No Hx Substance Use Disorder: No Hx Alcohol Use: No (20 YRS AGO) Constitutional Vital Sign - Last 24 Hours 05/03/18 05/03/18 05/03/18 05/03/18 10:39 10:45 11:00 11:15 Temp 98.6 Pulse 132 128 123 Resp 18 12 11 B/P (MAP) 138/85 131/90 (104) 130/86 (101) 124/87 (99) Pulse Ox 90 90 91 O2 Delivery Room Air 05/03/18 05/03/18 05/03/1817/19 11:45 12:00 12:15 12:30 Pulse 118 115 Resp 21 20 B/P (MAP) 139/91 (107) 144/88 (106) 136/93 (107) 132/97 (109) Pulse Ox 86 87 05/03/18 05/03/18 05/03/18 05/03/18 12:45 12:50 13:00 13:15 Pulse 110 Resp 23 B/P (MAP) 136/89 (105) 119/83 (95) 124/84 (97) Pulse Ox 89 05/03/18 05/03/18 05/03/18 05/03/18 13:20 13:30 13:45 13:50 Pulse 100 103 Resp 19 30 B/P (MAP) 136/89 (105) 134/98 (110) Pulse Ox 90 91 Physical Exam General Appearance: The patient is alert, has no immediate need for airway protection and no signs of toxicity. Eyes: Pupils equal and round no pallor or injection. EOMs intact. ENT, Mouth: Mucous membranes are dry, geographic tongue. Respiratory: There are no retractions, lungs are clear to auscultation. Cardiovascular: Regular rate and rhythm, no murmurs, clicks or rubs. Gastrointestinal: Abdomen is soft and non tender, no masses, bowel sounds normal. Neurological: Alert and oriented 4. Moving all extremities. Following all commands. No focal neuro deficits. Skin: Contusion and nonsuturable laceration to the bridge and nose. Bleeding controlled. Musculoskeletal: C-spine tenderness at the level of C5-C7. No crepitus or obvious deformities. Extremities are nontender, nonswollen and have full range of motion. Mild tenderness to the right wrist, no deformities or significant pain. Positive supination pronation without discomfort. DIFFERENTIAL DIAGNOSIS: After history and physical exam differential diagnosis was considered for subarachnoid bleed, subdural bleed, nasal fracture, facial fractures, cervical spine fracture cervical strain, contusion, subluxation. Medical Decision Making Data Points Result Diagram: 05/03/18 1051 05/03/18 1051 Laboratory Hematology Test 05/03/18 00:00 05/03/18 10:51 05/03/18 12:50 Magnesium Level 0.8 mg/dl (1.7-2.2) Red Blood Count 5.39 M/uL (4.00-5.60) Mean Corpuscular Volume 89.3 fL (80.0-96.0) Mean Corpuscular Hemoglobin 29.8 pg (26.0-33.0) Mean Corpuscular Hemoglobin Concent 33.4 g/dL (32.0-36.0) Red Cell Distribution Width 14.2 % (11.5-14.5) Mean Platelet Volume 8.3 fL (7.2-11.1) Neutrophils (%) (Auto) 63.2 % (39.4-72.5) Lymphocytes (%) (Auto) 24.6 % (17.6-49.6) Monocytes (%) (Auto) 8.1 % (4.1-12.4) Eosinophils (%) (Auto) 3.0 % (0.4-6.7) Basophils (%) (Auto) 1.1 % (0.3-1.4) Nucleated RBC Relative Count (auto) 0.0 /100WBC Neutrophils # (Auto) 5.1 K/uL (2.0-7.4) Lymphocytes # (Auto) 2.0 K/uL (1.3-3.6) Monocytes # (Auto) 0.7 K/uL (0.3-1.0) Eosinophils # (Auto) 0.2 K/uL (0.0-0.5) Basophils # (Auto) 0.1 K/uL (0.0-0.1) Nucleated RBC Absolute Count (auto) 0.00 K/uL Prothrombin Time 30.1 seconds (12.0-14.4) Prothromb Time International Ratio 2.80 Activated Partial Thromboplast Time 92 seconds (23-35) Sodium Level 140 mmol/L (137-145) Potassium Level 2.9 mmol/L (3.5-5.0) Chloride Level 107 mmol/L (98-107) Carbon Dioxide Level 18 mmol/L (22-30) Blood Urea Nitrogen 15 mg/dl (9-21) Creatinine 2.80 mg/dl (0.66-1.25) Glomerular Filtration Rate Calc 22.9 Random Glucose 253 mg/dl (75-110) Calcium Level 9.1 mg/dl (8.4-10.2) Total Bilirubin 0.6 mg/dl (0.2-1.3) Aspartate Amino Transf (AST/SGOT) 53 U/L (0-35) Alanine Aminotransferase (ALT/SGPT) 41 U/L (0-56) Alkaline Phosphatase 186 U/L (0-126) Total Protein 6.3 g/dl (6.3-8.2) Albumin 3.6 g/dl (3.5-5.0) Lipase 27 U/L (23-300) Urine Color Yellow Urine Clarity Clear Urine pH 6.0 pH (4.8-9.5) Urine Specific [place] 1.009 Urine Protein Negative mg/dL (NEGATIVE) Urine Glucose (UA) Negative mg/dL (NEGATIVE) Urine Ketones Negative mg/dL (NEGATIVE) Urine Blood Negative (NEGATIVE) Urine Nitrite Negative (NEGATIVE) Urine Bilirubin Negative (NEGATIVE) Urine Urobilinogen Negative mg/dL (0.2-1.9) Urine Leukocyte Esterase Negative (NEGATIVE) Urine RBC <1 /HPF (0-2/HPF) Urine WBC <1 /HPF (0-5/HPF) Urine Squamous Epithelial Cells None /LPF (NONE-FEW) Urine Bacteria Negative /HPF (NONE-FEW) Urine Mucus None /HPF (NONE-FEW) Chemistry Test 05/03/18 00:00 05/03/18 10:51 05/03/18 12:50 Magnesium Level 0.8 mg/dl (1.7-2.2) White Blood Count 8.1 k/uL (4.5-11.0) Red Blood Count 5.39 M/uL (4.00-5.60) Hemoglobin 16.1 g/dL (14.0-18.0) Hematocrit 48.1 % (42.0-52.0) Mean Corpuscular Volume 89.3 fL (80.0-96.0) Mean Corpuscular Hemoglobin 29.8 pg (26.0-33.0) Mean Corpuscular Hemoglobin Concent 33.4 g/dL (32.0-36.0) Red Cell Distribution Width 14.2 % (11.5-14.5) Platelet Count 170 K/uL (150-450) Mean Platelet Volume 8.3 fL (7.2-11.1) Neutrophils (%) (Auto) 63.2 % (39.4-72.5) Lymphocytes (%) (Auto) 24.6 % (17.6-49.6) Monocytes (%) (Auto) 8.1 % (4.1-12.4) Eosinophils (%) (Auto) 3.0 % (0.4-6.7) Basophils (%) (Auto) 1.1 % (0.3-1.4) Nucleated RBC Relative Count (auto) 0.0 /100WBC Neutrophils # (Auto) 5.1 K/uL (2.0-7.4) Lymphocytes # (Auto) 2.0 K/uL (1.3-3.6) Monocytes # (Auto) 0.7 K/uL (0.3-1.0) Eosinophils # (Auto) 0.2 K/uL (0.0-0.5) Basophils # (Auto) 0.1 K/uL (0.0-0.1) Nucleated RBC Absolute Count (auto) 0.00 K/uL Prothrombin Time 30.1 seconds (12.0-14.4) Prothromb Time International Ratio 2.80 Activated Partial Thromboplast Time 92 seconds (23-35) Glomerular Filtration Rate Calc 22.9 Calcium Level 9.1 mg/dl (8.4-10.2) Total Bilirubin 0.6 mg/dl (0.2-1.3) Aspartate Amino Transf (AST/SGOT) 53 U/L (0-35) Alanine Aminotransferase (ALT/SGPT) 41 U/L (0-56) Alkaline Phosphatase 186 U/L (0-126) Total Protein 6.3 g/dl (6.3-8.2) Albumin 3.6 g/dl (3.5-5.0) Lipase 27 U/L (23-300) Urine Color Yellow Urine Clarity Clear Urine pH 6.0 pH (4.8-9.5) Urine Specific [place] 1.009 Urine Protein Negative mg/dL (NEGATIVE) Urine Glucose (UA) Negative mg/dL (NEGATIVE) Urine Ketones Negative mg/dL (NEGATIVE) Urine Blood Negative (NEGATIVE) Urine Nitrite Negative (NEGATIVE) Urine Bilirubin Negative (NEGATIVE) Urine Urobilinogen Negative mg/dL (0.2-1.9) Urine Leukocyte Esterase Negative (NEGATIVE) Urine RBC <1 /HPF (0-2/HPF) Urine WBC <1 /HPF (0-5/HPF) Urine Squamous Epithelial Cells None /LPF (NONE-FEW) Urine Bacteria Negative /HPF (NONE-FEW) Urine Mucus None /HPF (NONE-FEW) Coagulation Test 05/03/18 10:51 Prothrombin Time 30.1 seconds Prothromb Time International Ratio 2.80 Activated Partial Thromboplast Time 92 seconds Urinalysis Test 05/03/18 12:50 Urine Color Yellow Urine Clarity Clear Urine pH 6.0 pH (4.8-9.5) Urine Specific [place] 1.009 Urine Protein Negative mg/dL (NEGATIVE) Urine Glucose (UA) Negative mg/dL (NEGATIVE) Urine Ketones Negative mg/dL (NEGATIVE) Urine Blood Negative (NEGATIVE) Urine Nitrite Negative (NEGATIVE) Urine Bilirubin Negative (NEGATIVE) Urine Urobilinogen Negative mg/dL (0.2-1.9) Urine Leukocyte Esterase Negative (NEGATIVE) Urine RBC <1 /HPF (0-2/HPF) Urine WBC <1 /HPF (0-5/HPF) Urine Squamous Epithelial Cells None /LPF (NONE-FEW) Urine Bacteria Negative /HPF (NONE-FEW) Urine Mucus None /HPF (NONE-FEW) EKG/Imaging EKG Interpretation 12 lead EKG: Time of EKG 1138. Rhythm: Sinus tachycardia, ventricular rate 117 bpm. [place]: normal QRS: normal ST segments: No ST depression or elevation identified. No significant changes from the 04/19/2016 EKG. Imaging PATIENT NAME: Chrisitan Kay : 1955 MR: [id number] V: [id number] EXAM DATE: ORDERING PHYSICIAN: BYRON ROSS TECHNOLOGIST: Location: [facility] [place] Patient: Christian Kay : 1955 Visit/Account:[id number] Date of Sevice: 05/03/2018 EXAMINATION: Portable chest radiograph single view at 11:17 AM. HISTORY: Fall. Trauma. COMPARISON: Acute abdomen series from 12/18/2017. FINDINGS: A single portable AP view of the chest is obtained. Lines/tubes: None. Lungs/pleura: No focal consolidation or pleural effusion. No evidence of pneumothorax. Heart: Negative. Mediastinum: Negative. Bony structures/body wall: Negative. IMPRESSION: No radiographic evidence of acute cardiopulmonary disease. Report Dictated By: Dandy Kline MD at 05/03/2018 12:27 PM Report E-Signed By: Dandy Kline MD at 05/03/2018 12:31 PM WSN:[id number] Location: [facility] [place] Patient: Christian Kay : 1955 Visit/Account:[id number] Date of Sevice: 05/03/2018 EXAMINATION: CT Head without intravenous contrast CT Face without intravenous contrast CT Cervical spine without intravenous contrast HISTORY: Trauma. TECHNIQUE: Head: Axial images were obtained from the skull base to the vertex without intravenous contrast. Sagittal and coronal reformatted images are also submitted. Face: Axial images were obtained from the superior aspect of the orbits through the inferior aspect of mandible. Coronal and sagittal reformatted images were obtained from the axial source data. Cervical spine: Axial images were obtained from the skull base through the upper thoracic spine without IV contrast administration. Coronal and sagittal reformatted images were obtained from the axial source data. One of the following dose optimization techniques was utilized in the performance of this exam: Automated exposure control; adjustment of the mA and/or kV according to the patient's size; or use of an iterative reconstruction technique. Specific details can be referenced in the facility's radiology CT exam operational policy. COMPARISON: Head CT dated 04/19/2016. FINDINGS: HEAD: Brain volume: Mild generalized volume loss. Ventricles: Negative. Acute ischemic changes: None. Hemorrhage: None. Masses / edema: None. Rich-white: Encephalomalacia/gliosis in the right parietal and occipital lobes. White matter: Mild chronic small vessel ischemic changes. Vessels: Negative. Extra-axial: Stable 1.5 x 0.6 x 1.2 cm meningioma overlying the right sylvian fissure (axial image 49; coronal image 39). Calvarium / skull base: Negative. FACE: Soft Tissues: Negative. Mandible / TMJ: Negative. Maxillae / pterygoid plates: Negative. Zygoma / zygomatic arches: Negative. Orbits: Negative. Nasal bones / nasal septum: Leftward nasal septal deviation. Otherwise negative. Frontal bones: Negative. Sinuses: Negative. CERVICAL SPINE: Alignment: Reversal of the normal lordosis. 3 mm of anterior listhesis of C3 over C4 and C4 over C5. Mild convex leftward curvature. Cranio-cervical junction: Negative. Vertebral bodies: Negative. Posterior elements: Multilevel facet hypertrophy. Otherwise negative. Hardware: None. Disc Spaces: Multilevel degenerative disc disease. Soft tissues: No prevertebral soft tissue swelling. 1.3 cm right posterior thyroid nodule. Subcentimeter left thyroid nodule. Mild calcified plaque in the carotid arteries. Visualized upper chest: Negative. IMPRESSION: 1. No acute intracranial abnormality. 2. No acute maxillofacial fracture. 3. No acute cervical spine fracture. 4. Chronic right parietal and occipital infarctions. 5. Stable small meningioma overlying the right sylvian fissure measuring 1.5 x 0.6 x 1.2 cm (axial image 49; coronal image 39). 6. Multilevel degenerative disc disease and facet hypertrophy in the cervical spine with multiple alignment abnormalities. 7. Bilateral thyroid nodules measuring up to 1.3 cm on the right. Report Dictated By: Byron Sanchez MD at 05/03/2018 12:10 PM Report E-Signed By: Byron Sanchez MD at 05/03/2018 12:26 P ED Course/Re-evaluation Clinical Indication for ER IV: Hydration, IV Access ED Course The patient was admitted to room. A history and physical were obtained. Differential diagnoses were considered. IV was started. A CBC, CMP, troponin were obtained. EKG showing sinus tachycardia. A 500 mL normal saline bolus was given, 500 mL normal saline at 125 an hour. CBC unremarkable, chemistry showing potassium 2.9, magnesium 0.8, creatinine 2.80, glucose 253, alk phosphatase 186. INR 2.8, negative catheter UA. A history of the review of the patient's lab [facility] does indicate that the potassium and the magnesium are out of the normal range for the patient, the creatinine is within the patient's normal range. A two-view chest x-ray was negative for any acute cardiopulmonary process. A CT of the facial bones, head and cervical spine were negative for any acute osseous abnormalities. No intracranial bleed. Patient was given 20 no purulence by mouth potassium, as well as 20 mEq IV potassium. Patient was given 2 g IV magnesium. I did recommend an admission the patient's unsteadiness could be secondary to the low potassium and magnesium, I did speak with Dr. Tico Goldstein the hospitalist on- call, he is accepting the patient into the hospital services. The patient was agreeable to an admission. 05/03/2018 11:18:32 am patient did have C-spine tenderness, c-collar placed. 05/03/2018 1:46:52 pm I did speak with Dr. Tico Goldstein, the hospitalist on-call, he's etc. the patient into the hospital services for fall, hypokalemia, hypmagnesemia. Decision to Disposition Date: May 03, 2018 Decision to Disposition Time: 13:46 Depart Departure Latest Vital Signs Vital Signs Date Time Temp Pulse Resp B/P (MAP) Pulse Ox O2 Delivery O2 Flow Rate FiO2 05/03/18 13:50 103 30 91 05/03/18 13:45 134/98 (110) 05/03/18 10:39 98.6 Room Air Impression: Primary Impression: Hypokalemia Additional Impressions: Fall Hypomagnesemia Condition: Improved Disposition: Admitted from ER Referrals: LOPEZ DOMÍNGUEZ MD (PCP) Problem Qualifiers Additional Impressions: Fall Encounter type: initial encounter Qualified Codes: W19.XXXA - Unspecified fall, initial encounter BYRON ROSS DIRECTOR DIGITAL COMMUNICATIONS-BC May 03, 2018 10:58
[2018-05-03] MEDS ORDERED: NS(*) 0.9% 500 ML BAG 500 ML IV ONE (11:13)
[2018-05-03] MEDS ORDERED: DIPHTH/TETANUS/ACEL. PERTUSSIS IM ONE (11:15)
[2018-05-03 11:22] LABS: PLATELET COUNT, AUTOMATED 170 K/uL (150-450)
[2018-05-03 11:27] LABS: INR 2.8
[2018-05-03] MEDS ORDERED: KCL (*) 20 MEQ/100 ML PREMIX 100 ML IV SCH (11:35)
[2018-05-03] MEDS ORDERED: fentaNYL CITR 100 MCG/2 ML AMP IVP ONE (11:35)
[2018-05-03] MEDS ORDERED: POTASSIUM CHL 20 MEQ TABCR PO ONE (11:35)
--- NOTE | 2018-05-03 11:44 | EKG ---
FACILITY: [facility] - [place] PATIENT NAME: SHARDA RIGGS : [id number] MR: [id number] V: [id number] EXAM DATE: ORDERING PHYSICIAN: DUANE ROSS TECHNOLOGIST: MARCEL Cortés Reason : FALL Blood Pressure : / mmHG Vent. Rate : 117 BPM Atrial Rate : 117 BPM P-R Int : 140 ms QRS Dur : 090 ms QT Int : 342 ms P-R-T Axes : 034 067 020 degrees QTc Int : 477 ms Sinus tachycardia Nonspecific ST-T findings inferior leads Decreased R wave progression anteriorly Confirmed by IWONA PEREZ ([id number]) on 05/03/2018 4:33:01 PM Referred By: Confirmed By:IWONA PEREZ
[2018-05-03] MEDS ORDERED: MAGNESIUM SUL* 2 GM/50 ML IVPB 50 ML IVPB ONE ×2 (12:10→21:30)
--- NOTE | 2018-05-03 12:31 | RADIOLOGY IMAGING REPORT ---
FACILITY: [facility] - [place] PATIENT NAME: Christian Kay : 1955 MR: [id number] V: [id number] EXAM DATE: ORDERING PHYSICIAN: DUANE ROSS TECHNOLOGIST: Location: [facility] Patient: Christian Kay : 1955 Visit/Account:[id number] Date of Sevice: 05/03/2018 EXAMINATION: CT Head without intravenous contrast CT Face without intravenous contrast CT Cervical spine without intravenous contrast HISTORY: Trauma. TECHNIQUE: Head: Axial images were obtained from the skull base to the vertex without intravenous contrast. Sa gittal and coronal reformatted images are also submitted. Face: Axial images were obtained from the superior aspect of the orbits through the inferior aspect of mandible. Coronal and sagittal reformatted images were obtained from the axial source data. Cervical spine: Axial images were obtained from the skull base through the upper thoracic spine with out IV contrast administration. Coronal and sagittal reformatted images were obtained from the axial source data. One of the following dose optimization techniques was utilized in the performance of this exam: Autom ated exposure control; adjustment of the mA and/or kV according to the patient's size; or use of an i terative reconstruction technique. Specific details can be referenced in the facility's radiology C T exam operational policy. COMPARISON: Head CT dated 04/19/2016. FINDINGS: HEAD: Brain volume: Mild generalized volume loss. Ventricles: Negative. Acute ischemic changes: None. Hemorrhage: None. Masses / edema: None. Rich-white: Encephalomalacia/gliosis in the right parietal and occipital lobes. White matter: Mild chronic small vessel ischemic changes. Vessels: Negative. Extra-axial: Stable 1.5 x 0.6 x 1.2 cm meningioma overlying the right sylvian fissure (axial image 4 9; coronal image 39). Calvarium / skull base: Negative. FACE: Soft Tissues: Negative. Mandible / TMJ: Negative. Maxillae / pterygoid plates: Negative. Zygoma / zygomatic arches: Negative. Orbits: Negative. Nasal bones / nasal septum: Leftward nasal septal deviation. Otherwise negative. Frontal bones: Negative. Sinuses: Negative. CERVICAL SPINE: Alignment: Reversal of the normal lordosis. 3 mm of anterior listhesis of C3 over C4 and C4 over C5. Mild convex leftward curvature. Cranio-cervical junction: Negative. Vertebral bodies: Negative. Posterior elements: Multilevel facet hypertrophy. Otherwise negative. Hardware: None. Disc Spaces: Multilevel degenerative disc disease. Soft tissues: No prevertebral soft tissue swelling. 1.3 cm right posterior thyroid nodule. Subcenti meter left thyroid nodule. Mild calcified plaque in the carotid arteries. Visualized upper chest: Negative. IMPRESSION: 1. No acute intracranial abnormality. 2. No acute maxillofacial fracture. 3. No acute cervical spine fracture. 4. Chronic right parietal and occipital infarctions. 5. Stable small meningioma overlying the right sylvian fissure measuring 1.5 x 0.6 x 1.2 cm (axial i mage 49; coronal image 39). 6. Multilevel degenerative disc disease and facet hypertrophy in the cervical spine with multiple al ignment abnormalities. 7. Bilateral thyroid nodules measuring up to 1.3 cm on the right. Report Dictated By: Duane Sanchez MD at 05/03/2018 12:10 PM Report E-Signed By: Duane Sanchez MD at 05/03/2018 12:26 P
--- NOTE | 2018-05-03 12:32 | RADIOLOGY IMAGING REPORT ---
[place] [facility] [place] Christian Kay : 1955 MR: [id number] V: [id number] EXAM DATE: ORDERING PHYSICIAN: DUANE ROSS TECHNOLOGIST: Location: [facility] Patient: Christian Kay : 1955 Visit/Account:[id number] Date of Sevice: 05/03/2018 EXAMINATION: CT Head without intravenous contrast CT Face without intravenous contrast CT Cervical spine without intravenous contrast HISTORY: Trauma. TECHNIQUE: Head: Axial images were obtained from the skull base to the vertex without intravenous contrast. Sa gittal and coronal reformatted images are also submitted. Face: Axial images were obtained from the superior aspect of the orbits through the inferior aspect of mandible. Coronal and sagittal reformatted images were obtained from the axial source data. Cervical spine: Axial images were obtained from the skull base through the upper thoracic spine with out IV contrast administration. Coronal and sagittal reformatted images were obtained from the axial source data. One of the following dose optimization techniques was utilized in the performance of this exam: Autom ated exposure control; adjustment of the mA and/or kV according to the patient's size; or use of an i terative reconstruction technique. Specific details can be referenced in the facility's radiology C T exam operational policy. COMPARISON: Head CT dated 04/19/2016. FINDINGS: HEAD: Brain volume: Mild generalized volume loss. Ventricles: Negative. Acute ischemic changes: None. Hemorrhage: None. Masses / edema: None. Rich-white: Encephalomalacia/gliosis in the right parietal and occipital lobes. White matter: Mild chronic small vessel ischemic changes. Vessels: Negative. Extra-axial: Stable 1.5 x 0.6 x 1.2 cm meningioma overlying the right sylvian fissure (axial image 4 9; coronal image 39). Calvarium / skull base: Negative. FACE: Soft Tissues: Negative. Mandible / TMJ: Negative. Maxillae / pterygoid plates: Negative. Zygoma / zygomatic arches: Negative. Orbits: Negative. Nasal bones / nasal septum: Leftward nasal septal deviation. Otherwise negative. Frontal bones: Negative. Sinuses: Negative. CERVICAL SPINE: Alignment: Reversal of the normal lordosis. 3 mm of anterior listhesis of C3 over C4 and C4 over C5. Mild convex leftward curvature. Cranio-cervical junction: Negative. Vertebral bodies: Negative. Posterior elements: Multilevel facet hypertrophy. Otherwise negative. Hardware: None. Disc Spaces: Multilevel degenerative disc disease. Soft tissues: No prevertebral soft tissue swelling. 1.3 cm right posterior thyroid nodule. Subcenti meter left thyroid nodule. Mild calcified plaque in the carotid arteries. Visualized upper chest: Negative. IMPRESSION: 1. No acute intracranial abnormality. 2. No acute maxillofacial fracture. 3. No acute cervical spine fracture. 4. Chronic right parietal and occipital infarctions. 5. Stable small meningioma overlying the right sylvian fissure measuring 1.5 x 0.6 x 1.2 cm (axial i mage 49; coronal image 39). 6. Multilevel degenerative disc disease and facet hypertrophy in the cervical spine with multiple al ignment abnormalities. 7. Bilateral thyroid nodules measuring up to 1.3 cm on the right. Report Dictated By: Duane Sanchez MD at 05/03/2018 12:10 PM Report E-Signed By: Duane Sanchez MD at 05/03/2018 12:26 P
--- NOTE | 2018-05-03 12:32 | RADIOLOGY IMAGING REPORT ---
FACILITY: [facility] - [place], [place] PATIENT NAME: Christian Kay : 1955 MR: [id number] V: [id number] EXAM DATE: ORDERING PHYSICIAN: DUANE ROSS TECHNOLOGIST: Location: [facility] - [place], [place] Patient: Christian Kay : 1955 Visit/Account:[id number] Date of Sevice: 05/03/2018 EXAMINATION: CT Head without intravenous contrast CT Face without intravenous contrast CT Cervical spine without intravenous contrast HISTORY: Trauma. TECHNIQUE: Head: Axial images were obtained from the skull base to the vertex without intravenous contrast. Sa gittal and coronal reformatted images are also submitted. Face: Axial images were obtained from the superior aspect of the orbits through the inferior aspect of mandible. Coronal and sagittal reformatted images were obtained from the axial source data. Cervical spine: Axial images were obtained from the skull base through the upper thoracic spine with out IV contrast administration. Coronal and sagittal reformatted images were obtained from the axial source data. One of the following dose optimization techniques was utilized in the performance of this exam: Autom ated exposure control; adjustment of the mA and/or kV according to the patient's size; or use of an i terative reconstruction technique. Specific details can be referenced in the facility's radiology C T exam operational policy. COMPARISON: Head CT dated 04/19/2016. FINDINGS: HEAD: Brain volume: Mild generalized volume loss. Ventricles: Negative. Acute ischemic changes: None. Hemorrhage: None. Masses / edema: None. Rich-white: Encephalomalacia/gliosis in the right parietal and occipital lobes. White matter: Mild chronic small vessel ischemic changes. Vessels: Negative. Extra-axial: Stable 1.5 x 0.6 x 1.2 cm meningioma overlying the right sylvian fissure (axial image 4 9; coronal image 39). Calvarium / skull base: Negative. FACE: Soft Tissues: Negative. Mandible / TMJ: Negative. Maxillae / pterygoid plates: Negative. Zygoma / zygomatic arches: Negative. Orbits: Negative. Nasal bones / nasal septum: Leftward nasal septal deviation. Otherwise negative. Frontal bones: Negative. Sinuses: Negative. CERVICAL SPINE: Alignment: Reversal of the normal lordosis. 3 mm of anterior listhesis of C3 over C4 and C4 over C5. Mild convex leftward curvature. Cranio-cervical junction: Negative. Vertebral bodies: Negative. Posterior elements: Multilevel facet hypertrophy. Otherwise negative. Hardware: None. Disc Spaces: Multilevel degenerative disc disease. Soft tissues: No prevertebral soft tissue swelling. 1.3 cm right posterior thyroid nodule. Subcenti meter left thyroid nodule. Mild calcified plaque in the carotid arteries. Visualized upper chest: Negative. IMPRESSION: 1. No acute intracranial abnormality. 2. No acute maxillofacial fracture. 3. No acute cervical spine fracture. 4. Chronic right parietal and occipital infarctions. 5. Stable small meningioma overlying the right sylvian fissure measuring 1.5 x 0.6 x 1.2 cm (axial i mage 49; coronal image 39). 6. Multilevel degenerative disc disease and facet hypertrophy in the cervical spine with multiple al ignment abnormalities. 7. Bilateral thyroid nodules measuring up to 1.3 cm on the right. Report Dictated By: Duane Sanchez MD at 05/03/2018 12:10 PM Report E-Signed By: Duane Sanchez MD at 05/03/2018 12:26 P
[2018-05-03] MEDS ORDERED: NS(*) 0.9% 500 ML BAG 500 ML IV PRN (12:35)
--- NOTE | 2018-05-03 12:37 | RADIOLOGY IMAGING REPORT ---
FACILITY: [facility] - [place] PATIENT NAME: Christian Kay : 1955 MR: [id number] V: [id number] EXAM DATE: ORDERING PHYSICIAN: DUANE ROSS TECHNOLOGIST: Location: [place] [facility] Patient: Christian Kay : 1955 Visit/Account:[id number] Date of Sevice: 05/03/2018 EXAMINATION: Portable chest radiograph single view at 11:17 AM. HISTORY: Fall. Trauma. COMPARISON: Acute abdomen series from 12/18/2017. FINDINGS: A single portable AP view of the chest is obtained. Lines/tubes: None. Lungs/pleura: No focal consolidation or pleural effusion. No evidence of pneumothorax. Heart: Negative. Mediastinum: Negative. Bony structures/body wall: Negative. IMPRESSION: No radiographic evidence of acute cardiopulmonary disease. Report Dictated By: Dandy Kline MD at 05/03/2018 12:27 PM Report E-Signed By: Dandy Kline MD at 05/03/2018 12:31 PM WSN:[id number]
[2018-05-03 14:23] VITALS: BP 141/86
[2018-05-03] MEDS ORDERED: PARO-243 PO (14:33)
[2018-05-03] MEDS ORDERED: WARF5TAB23 PO ×2 (14:33)
[2018-05-03] MEDS ORDERED: KCL 2 MEQ/ML 20 MEQ/10 ML VIAL 20 MEQ in NS(*) 0.9% 1000 ML BAG 1,000 ML IV PRN (15:07)
--- NOTE | 2018-05-03 15:33 | History & Physical ---
History of Present Illness Chief Complaint Passed out History of Present Illness 63yo male with extensive PMHx including type 2 DM, antiphospholipid antibody syndrome, CVA, CRF. He reports urinating in the [facility] bathroom and having sudden onset of dizziness/lightheadedness. He believes he lost consciousness and fell forward striking his nose/head on toilet. He does not recall actually hitting the toilet. He did not injury his hands. He does not recall any CP/SOB/palpitations/heart racing/skipping. He did not have any focal weakness/numbness. He is unsure how long he may have been unconscious, but did get himself up and out of bathroom. He sustained a laceration to the bridge of his nose and had some bleeding. His said he was not in the bathroom for an extended time. He was evaluated in the ER and found to have significant hypo kalemia and hypomagnesemia. His EKG showed a slightly prolonged QTc, but was otherwise unremarkable. His CT scans showed old CVA and degenerative c-spine changes. He was recommended for admission. History Problems: (1) Insulin-requiring or dependent type II diabetes mellitus Status: Chronic (2) HTN (hypertension) Status: Chronic (3) CKD (chronic kidney disease) stage 3, GFR 30-59 ml/min Status: Chronic (4) History of CVA (cerebrovascular accident) Status: Chronic (5) ANTIPHOSPHOLIPID SYNDROME Status: Chronic (6) History of seizure Status: Chronic (7) Basal cell carcinoma of left ear Status: Resolved (8) History of melanoma Status: Chronic (9) Anemia, chronic renal failure Status: Chronic Home Meds Active Scripts Ondansetron (ZOFRAN ODT) 4 Mg Tab.rapdis, 4 MG PO Q6H PRN for NAUSEA/VOMITING, #20 TAB.TAVARES Prov:RAHEEM STEIN [facility] 12/18/17 Fluticasone Prop 50 Mcg Ns (FLONASE 50 MCG NS) 16 Gm [place].susp, 1 SPRAY NS BID, #1 BOT Prov:RAHEEM STEIN [facility] 04/19/16 Reported Medications Warfarin Sodium (WARFARIN SODIUM) 5 Mg Tablet, 5 MG PO SuTuThSa, TAB 05/03/18 Warfarin Sodium (WARFARIN SODIUM) 5 Mg Tablet, 2.5 MG PO MOWEDFRI, TAB 05/03/18 Paroxetine Hcl (PAXIL) 20 Mg Tablet, 40 MG PO QDAY, TAB 05/03/18 Calcitriol (CALCITRIOL) 0.5 Mcg Capsule, PO DIRECTED, CAPSULE MWF 11/03/17 Ferrous Sulfate (IRON) 325 Mg Tablet, 325 MG PO DAILY 09/16/15 Oxygen (OXYGEN) Inha, 2 L INH PRN for SHORTNESS OF BREATH, L 09/16/15 Sodium Bicarbonate (SODIUM BICARBONATE) 325 Mg Tablet, 650 MG PO BID 02/06/15 Atorvastatin (LIPITOR) 80 Mg Tab, 1 TAB PO HS, TAB 10/31/14 Insulin Lispro 100 Un/Ml Vial (HUMALOG 100 U/ML VIAL) 100 Unit/1 Ml Vial, 25 UNIT SQ BEFORE MEALS, VIAL 11/19/13 Insulin Glargine (LANTUS) 100 Unit/Ml Soln, 50 UNIT SUBQ QHS 11/19/13 Levetiracetam (Keppra) 500 Mg Tablet, 500 MG PO QID, 0 Refills 02/03/11 Multivitamins W-Minerals (Multiple Vitamin) 1 Tab Tablet, 1 TAB PO DAILY, 0 Refills 09/03/10 Omeprazole (Omeprazole) 20 Mg Tablet.dr, 40 MG PO QAM, 0 Refills 02/03/11 Discontinued Reported Medications Tramadol Hcl (TRAMADOL HCL) 50 Mg Tablet, 50-100 MG PO PRN, TAB 12/18/17 Prednisone 10 Mg Tab (PREDNISONE 10 MG TAB) 10 Mg Tablet, 5 MG PO QDAY, TAB 12/18/17 Amlodipine Besylate (AMLODIPINE BESYLATE) 10 Mg Tablet, 1 TAB PO QDAY, TAB 11/03/17 Ezetimibe (ZETIA) 10 Mg Tablet, PO QDAY, TAB 11/03/17 Warfarin Sodium (COUMADIN) 2.5 Mg Tablet, 2.5 MG PO QT AND Monday11/03/17 Warfarin Sodium (COUMADIN) 5 Mg Tablet, 5 MG PO DAILY take 5 mg every day except MONDAY AND Monday10/20/15 Paroxetine Hcl (PAROXETINE HCL) 10 Mg Tablet, 40 MG PO QDAY 06/12/14 Gabapentin (GABAPENTIN) 300 Mg Capsule, 300 MG PO TID, CAPSULE 06/12/14 Dicyclomine Hcl (DICYCLOMINE HCL) 20 Mg Tablet, 20 MG PO QID 11/19/13 Donepezil Hcl (ARICEPT) 10 Mg Tablet, 10 MG PO QDAY, TAB 11/19/13 Potassium Chloride (Klor-Con M20) 20 Meq Tab.prt.sr, 20 MEQ PO QAM, 0 Refills 09/03/10 Discontinued Scripts Hydrocodone Bit/Acetaminophen (HYDROCODON-ACETAMINOPHEN 5-325) 1 Each Tablet, 1 EACH PO Q4-6H PRN for PAIN, #12 TAB Prov:RAHEEM STEIN 12/18/17 Oxycodone Hcl/Acet 5/325 Mg (ENDOCET 5-325 TABLET) 1 Each Tablet, 1 TAB PO Q4H PRN for PAIN, #20 TAB 0 Refills Prov:LOPEZ LO MD 11/21/17 Amoxicillin/Pot Clav 875-125 Mg Tab (AUGMENTIN 875-125 TABLET) 1 Each Tablet, 1 TAB PO BID, #14 TAB 0 Refills take 1 tablet twice each day until gone (total of 7 days) Prov:LOPEZ LO MD 11/09/17 Docusate Sodium (COLACE) 100 Mg Capsule, 1 CAP PO BID, #30 CAP 0 Refills TAKE WITH A FULL GLASS OF WATER Prov:LOPEZ LO MD 11/09/17 Allergies: Coded Allergies: zolpidem (Verified Adverse Reaction, Severe, CONFUSION AND SUICIDAL IDEATI ON, 04/19/16) confusion and suicide ideation per patient report Patient History: FH: arthritis BROTHER OR SISTER FH: heart attack FATHER, , Onset:60 years & older BROTHER OR SISTER FH: liver disease MOTHER, , Age:55 FH: obesity CHILD, Age:30 CHILD FH: sleep apnea CHILD, Age:30 FH: stroke FATHER, Hx Smoking: No Smoking Status: Never Smoker Exposure to Second Hand Smoke?: No Caffeine Intake: Tea Caffeine/Cups Per Day: 1 gallon q 3 days Hx Alcohol Use: No (20 YRS AGO) Hx Substance Use Disorder: No Social Drug Use: Never Review of Systems Constitutional: No Fever, No Chills Neurological: Syncope, Dizziness; No Weakness Eyes: No Vision Change, No Loss of Vision ENT: No Hearing Loss Cardiovascular: No Chest Pain, No Palpitations Respiratory: No Shortness of Breath Gastrointestinal: No Nausea, No Vomiting; Diarrhea; No Hematemesis, No Hematochezia, No Melena, No Abdominal Pain Genitourinary: No Dysuria, No Hematuria Exam Vital Signs Vital Signs Date Time Temp Pulse Resp B/P (MAP) Pulse Ox O2 Delivery O2 Flow Rate FiO2 05/03/18 14:37 93 Nasal Cannula 3.0 05/03/18 14:23 98.5 100 16 141/86 (104) General Appearance: Alert, Awake, No Acute Distress Neuro: Other (Left upper and lower extremity weakness 4-4+/5 all groups) Eyes: PERRLA ENT: Oropharynx Clear, Other (smal laceration on bridge of nose/edentulous) Neck: No Masses Cardiovascular: Regular Rate and Rhythm (no murmur noted), No Edema Respiratory: Clear to Auscultation Chest: No Tenderness GI: Abd Soft and Non-Tender : No CVA Tenderness Extremities: Warm, Perfused Integumentary: Skin Intact without Lesion / Mass Psych: Alert & Oriented X3 Medical Decision Making Data Points Result Diagram: 05/03/18 1051 05/03/18 1051 Item Value Date Time Activated Partial Thromboplast Time 92 seconds H 05/03/18 1051 Prothromb Time International Ratio 2.80 05/03/18 1051 Prothrombin Time 30.1 seconds H 05/03/18 1051 Albumin 3.6 g/dl 05/03/18 1051 Total Protein 6.3 g/dl 05/03/18 1051 Alkaline Phosphatase 186 U/L H 05/03/18 1051 Alanine Aminotransferase (ALT/SGPT) 41 U/L 05/03/18 1051 Total Bilirubin 0.6 mg/dl 05/03/18 1051 Calcium Level 9.1 mg/dl 05/03/18 1051 Magnesium Level 0.8 mg/dl *L 05/03/18 0000 Lipase 27 U/L 05/03/18 1051 Urine Mucus None /HPF 05/03/18 1250 Urine Bacteria Negative /HPF 05/03/18 1250 Urine Squamous Epithelial Cells None /LPF 05/03/18 1250 Urine WBC <1 /HPF 05/03/18 1250 Urine RBC <1 /HPF 05/03/18 1250 Urine Leukocyte Esterase Negative 05/03/18 1250 Urine Urobilinogen Negative mg/dL 05/03/18 1250 Urine Bilirubin Negative 05/03/18 1250 Urine Nitrite Negative 05/03/18 1250 Urine Blood Negative 05/03/18 1250 Urine Ketones Negative mg/dL 05/03/18 1250 Urine Glucose (UA) Negative mg/dL 05/03/18 1250 Urine Protein Negative mg/dL 05/03/18 1250 Urine Specific [place] 1.009 05/03/18 1250 Urine pH 6.0 pH 05/03/18 1250 Urine Clarity Clear 05/03/18 1250 Urine Color Yellow 05/03/18 1250 EKG / Imaging EKG Interpretation PATIENT NAME: CHRISTIAN RIGGS : [id number] MR: [id number] V: [id number] EXAM DATE: ORDERING PHYSICIAN: BYRON ROSS TECHNOLOGIST: MARCEL Cortés Reason : FALL Blood Pressure : / mmHG Vent. Rate : 117 BPM Atrial Rate : 117 BPM P-R Int : 140 ms QRS Dur : 090 ms QT Int : 342 ms P-R-T Axes : 034 067 020 degrees QTc Int : 477 ms Sinus tachycardia Otherwise normal ECG When compared with ECG of 19-APR-2016 09:24, Previous ECG has undetermined rhythm, needs review Referred By: Confirmed By: Imaging PATIENT NAME: Christian Riggs : 1955 MR: [id number] V: [id number] EXAM DATE: ORDERING PHYSICIAN: BYRON ROSS TECHNOLOGIST: Location: [facility] - [place] Patient: Christian Riggs : 1955 Visit/Account:[id number] Date of Sevice: 05/03/2018 EXAMINATION: CT Head without intravenous contrast CT Face without intravenous contrast CT Cervical spine without intravenous contrast HISTORY: Trauma. TECHNIQUE: Head: Axial images were obtained from the skull base to the vertex without intravenous contrast. Sagittal and coronal reformatted images are also submi tted. Face: Axial images were obtained from the superior aspect of the orbits through the inferior aspect of mandible. Coronal and sagittal reformatted images were obtained from the axial source data. Cervical spine: Axial images were obtained from the skull base through the upper thoracic spine without IV contrast administration. Coronal and sagittal reformatted images were obtained from the axial source data. One of the following dose optimization techniques was utilized in the perform ance of this exam: Automated exposure control; adjustment of the mA and/or kV according to the patient's size; or use of an iterative reconstruction technique. Specific details can be referenced in the facility's radiology CT exam operational policy. COMPARISON: Head CT dated 04/19/2016. FINDINGS: HEAD: Brain volume: Mild generalized volume loss. Ventricles: Negative. Acute ischemic changes: None. Hemorrhage: None. Masses / edema: None. Rich-white: Encephalomalacia/gliosis in the right parietal and occipital lobes. White matter: Mild chronic small vessel ischemic changes. Vessels: Negative. Extra-axial: Stable 1.5 x 0.6 x 1.2 cm meningioma overlying the right sylvian fissure (axial image 49; coronal image 39). Calvarium / skull base: Negative. FACE: Soft Tissues: Negative. Mandible / TMJ: Negative. Maxillae / pterygoid plates: Negative. Zygoma / zygomatic arches: Negative. Orbits: Negative. Nasal bones / nasal septum: Leftward nasal septal deviation. Otherwise negative. Frontal bones: Negative. Sinuses: Negative. CERVICAL SPINE: Alignment: Reversal of the normal lordosis. 3 mm of anterior listhesis of C3 over C4 and C4 over C5. Mild convex leftward curvature. Cranio-cervical junction: Negative. Vertebral bodies: Negative. Posterior elements: Multilevel facet hypertrophy. Otherwise negative. Hardware: None. Disc Spaces: Multilevel degenerative disc disease. Soft tissues: No prevertebral soft tissue swelling. 1.3 cm right posterior thyroid nodule. Subcentimeter left thyroid nodule. Mild calcified plaque in the carotid arteries. Visualized upper chest: Negative. IMPRESSION: 1. No acute intracranial abnormality. 2. No acute maxillofacial fracture. 3. No acute cervical spine fracture. 4. Chronic right parietal and occipital infarctions. 5. Stable small meningioma overlying the right sylvian fissure measuring 1.5 x 0.6 x 1.2 cm (axial image 49; coronal image 39). 6. Multilevel degenerative disc disease and facet hypertrophy in the cervical spine with multiple alignment abnormalities. 7. Bilateral thyroid nodules measuring up to 1.3 cm on the right. Report Dictated By: Byron Sanchez MD at 05/03/2018 12:10 PM Report E-Signed By: Byron Sanchez MD at 05/03/2018 12:26 P Assessment and Plan Problems: (1) Syncope Status: Acute Assessment & Plan: I suspect he may have had a significant dysrhythmia with syncope. His electrolyte abnormalities could certainly set him up for a dysr hythmia. He has received potassium and magnesium in the ER. Will check his electrolytes in a couple of hours and give further replacement as needed. Will monitor closely on telemetry. Check echocardiogram. (2) Hypomagnesemia Status: Acute Assessment & Plan: Replace with IV supplement. Watch labs. (3) Hypokalemia Status: Acute Assessment & Plan: Replace with IV supplements. Watch labs closely. (4) History of CVA (cerebrovascular accident) Status: Chronic Assessment & Plan: Due to antiphospholipid antibody syndrome. He has some mild left-sided paresis. He is currently managed with warfarin. INR is therapeutic. Continue same regimen and watch lab. (5) CKD (chronic kidney disease) stage 3, GFR 30-59 ml/min Status: Chronic Assessment & Plan: It appears his baseline creatinine has varied between 2.0- 3.0 over the past couple of years. He is currently 2.8. Will give gentle IV fluids. Watch labs/UOP. (6) History of seizure Status: Chronic Assessment & Plan: He is currently managed with Keppra 500mg PO QID. Will continue with same. It is potentially possible he had a seizure, but doubtful. He was not post-ictal and did not spend much time in the bathroom. (7) ANTIPHOSPHOLIPID SYNDROME Status: Chronic Assessment & Plan: Continue his warfarin and monitor INR/protime. (8) Insulin-requiring or dependent type II diabetes mellitus Status: Chronic Assessment & Plan: Continue Lantus 50 units SQ qHS, ADA diet, monitor glucoses, use SSI as needed. Copies to: LOPEZ DOMÍNGUEZ MD ; Venous Thromboembolism Antithrombotics Is Pt On Any Antithrombotics?: Yes Exam Sepsis Risk: No Definite Risk IWONA PEREZ MD May 03, 2018 15:33
[2018-05-03] MEDS: KCL/NS* 20 MEQ/1000 ML PREMIX 1,000 ML IV PRN (15:46)
[2018-05-03] MEDS: levETIRAcetam 500 MG TAB PO SCH ×2 (16:46→20:38)
[2018-05-03] MEDS: INSULIN HUM LISPRO 100 UN/ML 3 ML VIAL SUBQ PRN ×2 (16:46→20:42)
[2018-05-03] MEDS ORDERED: WARFARIN SOD 5 MG TAB PO ONE (16:50)
[2018-05-03 19:21] VITALS: BP 144/96
[2018-05-03] MEDS: ACETAMINOPHEN 325 MG TAB PO PRN (19:27)
[2018-05-03] MEDS ORDERED: OMEP40CA48 PO (20:27)
[2018-05-03] MEDS ORDERED: PARO40TA88 PO (20:27)
[2018-05-03] MEDS ORDERED: AMLO-127 PO (20:27)
[2018-05-03] MEDS ORDERED: CAL25 PO (20:27)
[2018-05-03] MEDS: SODIUM BICARBONATE 650 MG TAB PO SCH (20:39)
[2018-05-03] MEDS ORDERED: INSULIN GLARGINE 100 U/ML 3 ML PEN SUBQ SCH (21:00)
[2018-05-03] MEDS ORDERED: ATORVASTATIN 40 MG TAB PO SCH (21:00)
[2018-05-04 00:33] VITALS: BP 130/93
[2018-05-04] MEDS: KCL/NS* 20 MEQ/1000 ML PREMIX 1,000 ML IV PRN (02:43)
[2018-05-04 03:25] VITALS: BP 131/72
[2018-05-04 06:44] LABS: PLATELET COUNT, AUTOMATED 108 K/uL (150-450)
[2018-05-04 06:52] LABS: INR 2.54
[2018-05-04 07:04] VITALS: BP 150/93
[2018-05-04] MEDS ORDERED: POTASSIUM CHL 20 MEQ TABCR PO ONE (09:00)
[2018-05-04] MEDS ORDERED: PANTOPRAZOLE SOD 40 MG TABEC PO SCH (09:00)
[2018-05-04] MEDS ORDERED: PARoxetine HCL 20 MG TAB PO SCH (09:00)
[2018-05-04] MEDS ORDERED: CALCITRIOL 0.25 MCG CAP PO SCH (09:00)
[2018-05-04] MEDS: ACETAMINOPHEN 325 MG TAB PO PRN (09:45)
[2018-05-04] MEDS: SODIUM BICARBONATE 650 MG TAB PO SCH (09:46)
[2018-05-04] MEDS: levETIRAcetam 500 MG TAB PO SCH ×2 (09:46→13:23)
--- NOTE | 2018-05-04 10:05 | Hospitalist Progress Note ---
Subjective Progress Notes Subjective He was admitted after syncopal episode. He states he feels much better today than he did prior to admission. He denies any complaints this morning. Patient Complains of: Cardiovascular: No: Chest Pain Respiratory: No: Shortness of Breath Physical Exam Vital Signs Date Time Temp Pulse Resp B/P (MAP) Pulse Ox O2 Delivery O2 Flow Rate FiO2 05/04/18 07:04 97.7 99 20 150/93 (112) 93 Nasal Cannula 3.0 Intake and Output 05/03/18 23:59 Intake Total 1040 ml Output Total 500 ml Balance 540 ml Intake Oral 140 ml IV Total 900 ml Output Urine Total 500 ml # Bowel Movements 1 General Appearance: Alert, Awake, No Acute Distress, Afebrile Neuro: Other (left sided weakness) Cardiovascular: Regular Rate and Rhythm Respiratory: No Respiratory Distress, Clear to Auscultation GI: Soft and Non-Tender Extremities: Warm, Perfused; No Edema Psych: Alert & Oriented X3, Appropriate Mood & Affect Result Diagram: 05/04/18 0550 05/04/18 0550 Assessment and Plan Problems: (1) Syncope Status: Acute Assessment & Plan: I suspect he may have had a significant dysrhythmia with syncope. His electrolyte abnormalities could certainly set him up for a dysrhythmia. He has received potassium and magnesium in the ER. Will monitor closely on telemetry. Check echocardiogram. He will receive IV and oral potassium this morning. Recheck labs in the morning. (2) Hypomagnesemia Status: Acute Assessment & Plan: Replace with IV supplement. Watch labs. (3) Hypokalemia Status: Acute Assessment & Plan: Replace with IV supplements. Watch labs closely. Per patient, he was recently was stopped on oral supplements. (4) History of CVA (cerebrovascular accident) Status: Chronic Assessment & Plan: Due to antiphospholipid antibody syndrome. He has some mild left-sided paresis. He is currently managed with warfarin. INR is therapeutic. Continue same regimen and watch lab. (5) CKD (chronic kidney disease) stage 3, GFR 30-59 ml/min Status: Chronic Assessment & Plan: It appears his baseline creatinine has varied between 2.0- 3.0 over the past couple of years. He is currently 2.8. Will give gentle IV fluids. Watch labs/UOP. (6) History of seizure Status: Chronic Assessment & Plan: He is currently managed with Keppra 500mg PO QID. Will continue with same. It is potentially possible he had a seizure, but doubtful. He was not post-ictal and did not spend much time in the bathroom. (7) ANTIPHOSPHOLIPID SYNDROME Status: Chronic Assessment & Plan: Continue his warfarin and monitor INR/protime. (8) Insulin-requiring or dependent type II diabetes mellitus Status: Chronic Assessment & Plan: Continue Lantus 50 units SQ qHS, ADA diet, monitor glucoses, use SSI as needed. Exam Sepsis Risk: No Definite Risk LUIS MARTIN COMBAT CONTROL May 04, 2018 10:05
--- NOTE | 2018-05-04 11:41 | Medical Nutrition Therapy ---
Nutrition Anthropometrics Weight (Pounds): 200 Weight (Calculated Kilograms): 90.860 Luis Nutrition Score: Probably Inadequate Luis Nutrition Risk Score: 17 Dietary Referral Nutrition Risk Factors: Diff. Swallowing, Special Diet Nutrition Risk Comment: On ADA diet, had a stroke in 2007 Physical Findings Physical Appearance: Skin Appearance Skin Appearance: Edema Edema Location Modifier: Edema Location: Type of Edema: Degree of Edema: Gastrointestinal Symptoms GI Symtoms: Tube Present: Bowel Sounds: Recent Bowel Pattern: Stool Characteristics: Nutritional Diagnosis Nutritional Risk Acuity 2: Chronic Renal Failure Nutritional Risk Acuity 4: Good Appetite Past Medical History: HX of ANTIPHOSPHOLIPID SYNDROME, CVA, HTN, T2DM, Seizures, melanoma, Anemia, CKD stage 3, GFR 30-59 ml/min Nutritional Acuity: 2-Moderate Nutrition Diagnosis: Inconsistent Carb. Intake Nutrition Etiology: Physiological Causes Nutrition Problem/Etiology/Sym: Inconsistent carb intake as related to physiological causes as evidenced by whole blood glucose range fo 70-236mg/dL. Energy Requirement: 2970 (25 kcal/kg X 1.1 (TEF) X 1.2 (activity factor) Protein Requirement: 70 (0.8 g protein/kg) Fluid Requirement: 2250 (25mL/kg) Diet Type: Diabetic Nutrition Intervention: Cont diet as ordered, Encourage intake Drug: Warfarin Drug/Nutrition Recommendations: No High Vitamin K Foods Do Not Serve Any of the Follow: Broccoli, Brussel Sprouts, Spinach, [place] Lettu ce, Cranberry Juice Additional Diet Restrictions: NO HIGH VIT. K FOODS Diet Comment To RSA: CONSISTENCY OF VIT K FOODS Nutrition Monitoring & Eval Nutrition Goals: Eat 50-100% Meal Nutrition Monitoring: Monitor for adequate intake RD Patient Assessment Time: [address] Assessment Type: RD Screen Patient Nutrition Acuity: 2-Moderate Follow Up Date: May 06, 2018 Nutritional Comment: Pt admitted after passing out. Hx of T2DM, HTN, CKD, CVA, antiphospholipid syndrome, seizure, anemia, and two types of skin cancer. Dx with syncope, hypomagnesium, and hypokalemia. Pt on warfarin-will not offer high vit K foods, and 2 types of insulin. Client on ADA with 100% intakes. Whole blood glucose has ranged from 70-236. Hgb of 13.8 ad Hct of 40.6 are low. Cl of 3.1 is low. Creatinine of 2.40is high. Total protein of 5.0 is low as is albumin of 2.9. AST of 44 is low and ALT is WNL. Monitor for adequate intake and improvement in condition. -EMANUEL LLANES May 04, 2018 11:41
--- NOTE | 2018-05-04 11:48 | NUR ---
Occupational Therapy Impression Pt reports feeling much improved from yesterday. Desires to discharge home as soon as able. SBA supine to sit with HOB raised. SBA sit<>stands. CGA ambulation in hallway x150ft with RW. SpO2 WNL on 1L. Pt requiring v/c's for use of RW, ambulated with no AD prior. SBA toileting. CGA hygiene standing sink front. Rec discharge home with previous services when medically appropriate. Occupational Therapy Goals 1) Pt will be SBA grooming standing. 2) Pt will be Mod (I) toileting. Patient's Goal
[2018-05-04 11:51] VITALS: BP 154/94
[2018-05-04] MEDS: INSULIN HUM LISPRO 100 UN/ML 3 ML VIAL SUBQ PRN (11:57)
[2018-05-04] MEDS ORDERED: WARFARIN SOD 2.5 MG TAB PO SCH (13:00)
[2018-05-04] MEDS ORDERED: POTA20TA85 PO (14:27)
--- NOTE | 2018-05-04 14:39 | Hospitalist Depart ---
Discharge Summary Reason for Hosp/Final Diag: (1) Syncope Status: Acute Hospital Course & Plan: I suspect he may have had a significant dysrhythmia with syncope. His electrolyte abnormalities could certainly set him up for a dysrhythmia. He received potassium and magnesium in the ER. He was monitored on telemetry without any irregular rhythms. Echocardiogram shows EF 60-65%, trace mitral and aortic regurg and bubble study normal. He received IV and oral potassium this morning. He would like to go home at this time. He will follow up with Dr. Domínguez next week for lab recheck. I have recommended he restart his potassium supplement at 20meq daily. (2) Hypomagnesemia Status: Acute Hospital Course & Plan: Replaced with IV supplement. Improved. (3) Hypokalemia Status: Acute Hospital Course & Plan: Replaced with IV supplements. Improved. Per patient, he was recently was stopped on oral supplements. (4) History of CVA (cerebrovascular accident) Status: Chronic Hospital Course & Plan: Due to antiphospholipid antibody syndrome. He has some mild left-sided paresis. He is currently managed with warfarin. INR is therapeutic. Continue same regimen and watch lab. (5) CKD (chronic kidney disease) stage 3, GFR 30-59 ml/min Status: Chronic Hospital Course & Plan: It appears his baseline creatinine has varied between 2.0-3.0 over the past couple of years. He is currently 2.4. He was given gentle IV fluids. (6) History of seizure Status: Chronic Hospital Course & Plan: He is currently managed with Keppra 500mg PO QID. Will continue with same. It is potentially possible he had a seizure, but doubtful. He was not post-ictal and did not spend much time in the bathroom. (7) ANTIPHOSPHOLIPID SYNDROME Status: Chronic Hospital Course & Plan: Continue his warfarin. (8) Insulin-requiring or dependent type II diabetes mellitus Status: Chronic Hospital Course & Plan: He will continue Lantus 50 units SQ qHS, and his Humalog. He was placed on ADA diet, monitor glucoses, use SSI as needed during admission. Departure Latest Vital Signs Vital Signs 05/04/18 05/04/18 11:51 14:02 Temp 97.6 Pulse 88 Resp 19 B/P (MAP) 154/94 (114) Pulse Ox 91 O2 Delivery Nasal Cannula O2 Flow Rate 1.0 Weight (Pounds): 200 Weight (Ounces): 5.0 Result Diagram: 05/04/1850 05/04/18 0550 Condition: Improved Discharge: Home, Self Care Discharge Instructions Home Meds Active Scripts Potassium Chloride (KLOR-CON M20) 20 Meq Tab.er.prt, 20 MEQ PO QDAY, #30 TAB Prov:LUIS MARTIN TYING MACHINE OPERATOR LUMBER 05/04/18 Fluticasone Prop 50 Mcg Ns (FLONASE 50 MCG NS) 16 Gm [place].susp, 1 SPRAY NS BID, #1 BOT Prov:RAHEEM STEIN TYING MACHINE OPERATOR LUMBER 04/19/16 Reported Medications Amlodipine Besylate (AMLODIPINE BESYLATE) 10 Mg Tablet, 1 TAB PO QDAY, TAB 05/03/18 Paroxetine Hcl (PAROXETINE HCL) 40 Mg Tablet, 40 MG PO QDAY 05/03/18 Calcitriol (CALCITRIOL) 0.25 Mcg Cap, 0.25 MCG PO 3XW, CAP 05/03/18 Omeprazole (OMEPRAZOLE) 40 Mg Capsule.dr, 40 MG PO QDAY, CAP 05/03/18 Warfarin Sodium (WARFARIN SODIUM) 5 Mg Tablet, 5 MG PO SuTuThSa, TAB 05/03/18 Warfarin Sodium (WARFARIN SODIUM) 5 Mg Tablet, 2.5 MG PO MOWEDFRI, TAB 05/03/18 Ferrous Sulfate (IRON) 325 Mg Tablet, 325 MG PO DAILY 09/16/15 Oxygen (OXYGEN) Inha, 2 L INH PRN for SHORTNESS OF BREATH, L 09/16/15 Sodium Bicarbonate (SODIUM BICARBONATE) 325 Mg Tablet, 650 MG PO BID 02/06/15 Atorvastatin (LIPITOR) 80 Mg Tab, 1 TAB PO HS, TAB 10/31/14 Insulin Lispro 100 Un/Ml Vial (HUMALOG 100 U/ML VIAL) 100 Unit/1 Ml Vial, 25 UNIT SQ BEFORE MEALS, VIAL 11/19/13 Insulin Glargine (LANTUS) 100 Unit/Ml Soln, 50 UNIT SUBQ QHS 11/19/13 Levetiracetam (Keppra) 500 Mg Tablet, 500 MG PO QID, 0 Refills 02/03/11 Multivitamins W-Minerals (Multiple Vitamin) 1 Tab Tablet, 1 TAB PO DAILY, 0 Refills 09/03/10 Discontinued Reported Medications Paroxetine Hcl (PAXIL) 20 Mg Tablet, 40 MG PO QDAY, TAB 05/03/18 Tramadol Hcl (TRAMADOL HCL) 50 Mg Tablet, 50-100 MG PO PRN, TAB 12/18/17 Prednisone 10 Mg Tab (PREDNISONE 10 MG TAB) 10 Mg Tablet, 5 MG PO QDAY, TAB 12/18/17 Amlodipine Besylate (AMLODIPINE BESYLATE) 10 Mg Tablet, 1 TAB PO QDAY, TAB 11/03/17 Ezetimibe (ZETIA) 10 Mg Tablet, PO QDAY, TAB 11/03/17 Calcitriol (CALCITRIOL) 0.5 Mcg Capsule, PO DIRECTED, CAPSULE MWF 11/03/17 Warfarin Sodium (COUMADIN) 2.5 Mg Tablet, 2.5 MG PO AND Monday11/03/17 Warfarin Sodium (COUMADIN) 5 Mg Tablet, 5 MG PO DAILY take 5 mg every day except MONDAY AND Monday10/20/15 Paroxetine Hcl (PAROXETINE HCL) 10 Mg Tablet, 40 MG PO QDAY 06/12/14 Gabapentin (GABAPENTIN) 300 Mg Capsule, 300 MG PO TID, CAPSULE 06/12/14 Dicyclomine Hcl (DICYCLOMINE HCL) 20 Mg Tablet, 20 MG PO QID 11/19/13 Donepezil Hcl (ARICEPT) 10 Mg Tablet, 10 MG PO QDAY, TAB 11/19/13 Potassium Chloride (Klor-Con M20) 20 Meq Tab.prt.sr, 20 MEQ PO QAM, 0 Refills 09/03/10 Omeprazole (Omeprazole) 20 Mg Tablet.dr, 40 MG PO QAM, 0 Refills 02/03/11 Discontinued Scripts Ondansetron (ZOFRAN ODT) 4 Mg Tab.rapdis, 4 MG PO Q6H PRN for NAUSEA/VOMITING, #20 TAB.TAVARES Prov:RAHEEM STEIN TYING MACHINE OPERATOR LUMBER 12/18/17 Hydrocodone Bit/Acetaminophen (HYDROCODON-ACETAMINOPHEN 5-325) 1 Each Tablet, 1 EACH PO Q4-6H PRN for PAIN, #12 TAB Prov:RAHEEM STEIN 12/18/17 Oxycodone Hcl/Acet 5/325 Mg (ENDOCET 5-325 TABLET) 1 Each Tablet, 1 TAB PO Q4H PRN for PAIN, #20 TAB 0 Refills Prov:LOPEZ LO MD 11/21/17 Amoxicillin/Pot Clav 875-125 Mg Tab (AUGMENTIN 875-125 TABLET) 1 Each Tablet, 1 TAB PO BID, #14 TAB 0 Refills take 1 tablet twice each day until gone (total of 7 days) Prov:LOPEZ LO MD 11/09/17 Docusate Sodium (COLACE) 100 Mg Capsule, 1 CAP PO BID, #30 CAP 0 Refills TAKE WITH A FULL GLASS OF WATER Prov:LOPEZ LO MD 11/09/17 Diet: Diabetic Activity: As Tolerated, With Walker Special Instructions: Follow up with Dr. Domínguez next week to recheck labs. Restart Potassium Chloride 20meq daily. Copies to: LOPEZ DOMÍNGUEZ MD ; Venous Thromboembolism Antithrombotics Is Pt On Any Antithrombotics?: Yes LUIS MARTIN TYING MACHINE OPERATOR LUMBER May 04, 2018 14:39
--- NOTE | 2018-05-04 15:25 | NUR ---
Physical Therapy Impression Pt has already worked with OT and feels that he is doing well. Pt plans to discharge soon and has declined PT eval noting that his will be with him and they have addressed the electrolyte imbalance that was contributing to his falls. Physical Therapy Goals Patient's Goals
[2018-05-05] MEDS ORDERED: INFLUENZA VIRUS VAC 0.5ML SYR IM ONLY ONE (09:00)
[2018-05-05] MEDS ORDERED: WARFARIN SOD 5 MG TAB PO SCH (13:00)
== END 2018-05-04 15:40 | disposition home or self-care (01) | DRG 641 ==
LOC: ER 11:13 → MED 14:00
PROVIDERS: ADMIT Internal Medicine; ATTEND Internal Medicine
DX: E87.6 Hypokalemia (principal); D68.61 Antiphospholipid syndrome; I69.952 Hemiplegia and hemiparesis following unspecified cerebrovascular disease affecting left dominant side; R55 Syncope and collapse; E83.42 Hypomagnesemia; E11.22 Type 2 diabetes mellitus with diabetic chronic kidney disease; I12.9 Hypertensive chronic kidney disease with stage 1 through stage 4 chronic kidney disease, or unspecified chronic kidney disease; N18.3 Chronic kidney disease, stage 3 (moderate); D63.1 Anemia in chronic kidney disease; I49.9 Cardiac arrhythmia, unspecified; I08.0 Rheumatic disorders of both mitral and aortic valves; G40.909 Epilepsy, unspecified, not intractable, without status epilepticus; W18.09XA Striking against other object with subsequent fall, initial encounter; Y92.512 Supermarket, store or market as the place of occurrence of the external cause; Y99.8 Other external cause status; Z23 Encounter for immunization; Z79.01 Long term (current) use of anticoagulants; Z79.4 Long term (current) use of insulin
CPT/HCPCS: 36415; 36416; 70450; 70486; 71045; 72125; 81001; 82040; 82247; 82310; 82374; 82435; 82565; 82947; 82948; 83690; 83735; 84075; 84132; 84155; 84295; 84450; 84460; 84484; 84520; 85025; 85610; 85730; 90471; 90715; 93005; 93306; 96361; 96365; 96375; 97166; 99285; A4353; J1815; J3010; J3475; J3480; J7040; L0172

== ENCOUNTER 2018-05-21 11:49 | Emergency (ER) | payer MEDICARE, MEDICAID ==
[2015-10-18 10:34] VITALS: Wt 90.9 kg
[~2018-05-21 11:49] MED LIST changes: +OMEP40CA48 PO; +PARO-243 PO; +PARO40TA88 PO
--- NOTE | 2018-05-21 11:57 | ER Report ---
History and Physical Time Seen By MD: 11:57 HPI/ROS CHIEF COMPLAINT: Seizure HISTORY OF PRESENT ILLNESS: 63-year-old male patient presents to emergency room with complaint of a seizure. Patient states that he had fallen multiple times last week and was in seeing physical therapy this week. He states that he was there physical therapy where he had a seizure. He states that he was doing fine until a seizure. Patient states that currently he does not feel well. He denies having any fevers or chills. Denies any nausea or vomiting. Patient states that he does have some abdominal discomfort with concerns of being constipated. He states that he has been taking his seizure medication as directed and has not missed dose. REVIEW OF SYSTEMS: Respiratory: No cough, no dyspnea. Cardiovascular: No chest pain, no palpitations. Gastrointestinal: No vomiting, no abdominal pain. Musculoskeletal: No back pain. Allergies: Coded Allergies: zolpidem (Verified Adverse Reaction, Severe, CONFUSION AND SUICIDAL IDEATION, 05/21/18) confusion and suicide ideation per patient report Home Meds Active Scripts Potassium Chloride (KLOR-CON M20) 20 Meq Tab.er.prt, 20 MEQ PO QDAY, #30 TAB Prov:LUIS MARTIN CHIEF MAINTENANCE SUPERVISOR 05/04/18 Fluticasone Prop 50 Mcg Ns (FLONASE 50 MCG NS) 16 Gm [place].susp, 1 SPRAY NS BID, #1 BOT Prov:RAHEEM STEIN CHIEF MAINTENANCE SUPERVISOR 04/19/16 Reported Medications Amlodipine Besylate (AMLODIPINE BESYLATE) 10 Mg Tablet, 1 TAB PO QDAY, TAB 05/03/18 Paroxetine Hcl (PAROXETINE HCL) 40 Mg Tablet, 40 MG PO QDAY 05/03/18 Calcitriol (CALCITRIOL) 0.25 Mcg Cap, 0.25 MCG PO 3XW, CAP 05/03/18 Omeprazole (OMEPRAZOLE) 40 Mg Capsule.dr, 40 MG PO QDAY, CAP 05/03/18 Warfarin Sodium (WARFARIN SODIUM) 5 Mg Tablet, 5 MG PO SuTuThSa, TAB 05/03/18 Warfarin Sodium (WARFARIN SODIUM) 5 Mg Tablet, 2.5 MG PO MOWEDFRI, TAB 05/03/18 Ferrous Sulfate (IRON) 325 Mg Tablet, 325 MG PO DAILY 09/16/15 Oxygen (OXYGEN) Inha, 2 L INH PRN for SHORTNESS OF BREATH, L 09/16/15 Sodium Bicarbonate (SODIUM BICARBONATE) 325 Mg Tablet, 650 MG PO BID 02/06/15 Atorvastatin (LIPITOR) 80 Mg Tab, 1 TAB PO HS, TAB 10/31/14 Insulin Lispro 100 Un/Ml Vial (HUMALOG 100 U/ML VIAL) 100 Unit/1 Ml Vial, 25 UNIT SQ BEFORE MEALS, VIAL 11/19/13 Insulin Glargine (LANTUS) 100 Unit/Ml Soln, 50 UNIT SUBQ QHS 11/19/13 Levetiracetam (Keppra) 500 Mg Tablet, 500 MG PO QID, 0 Refills 02/03/11 Multivitamins W-Minerals (Multiple Vitamin) 1 Tab Tablet, 1 TAB PO DAILY, 0 Refills 09/03/10 Past Medical/Surgical History Patient has a past medical history of seizures, CVA, TIA, angina, hypertension, hyperlipidemia, asthma, pulmonary embolism, blood in stool, anemia, reflux, elevated liver enzymes, kidney insufficiency, arthritis, back pain, diabetes, lupus, alcohol abuse, chronic brain injury, depression, anxiety, skin cancer, suicide attempt. Patient has a surgical history of a cholecystectomy, colonoscopy. Patient has a family medical history of cancer, stroke. Reviewed Nurses Notes: Yes Hx Smoking: No Smoking Status: Never Smoker Exposure to Second Hand Smoke?: No Hx Substance Use Disorder: No Hx Alcohol Use: No (20 YRS AGO) Constitutional Vital Sign - Last 24 Hours 05/21/18 05/21/18 05/21/18 05/21/18 11:53 11:59 12:00 12:15 Temp 98.8 Pulse 102 114 97 Resp 16 21 9 B/P (MAP) 164/137 Pulse Ox 84 90 92 O2 Delivery Room Air O2 Flow Rate 2.0 05/21/18 05/21/18 05/21/18 05/21/18 12:30 12:45 13:00 13:15 Pulse 98 112 108 103 Resp 16 20 23 18 B/P (MAP) 145/97 (113) 145/111 (122) Pulse Ox 91 90 90 89 05/21/18 05/21/18 05/21/18 05/21/18 13:30 13:45 14:00 14:15 Pulse 104 107 106 109 Resp 17 21 24 11 B/P (MAP) 156/98 (117) 160/90 (113) Pulse Ox 90 89 88 88 05/21/18 14:18 B/P (MAP) 158/91 (113) Physical Exam General Appearance: The patient is alert, has no immediate need for airway protection and no current signs of toxicity. Respiratory: Chest is non tender, lungs are clear to auscultation. Cardiac: regular rate and rhythm Gastrointestinal: Abdomen is soft and non tender, no masses, bowel sounds normal. Musculoskeletal: Neck: Neck is supple and non tender. Extremities have full range of motion and are non tender. Skin: No rashes or lesions. Neuro: Patient is alert and oriented 4, cranial nerves II through XII grossly intact. DIFFERENTIAL DIAGNOSIS: After history and physical exam differential diagnosis was considered for a seizure including but not limited to electrolyte abnormality, alcohol withdrawal, medication noncompliance, head injury, and breakthrough seizure. Medical Decision Making Data Points Result Diagram: 05/21/18 1208 05/21/18 1208 Laboratory Hematology Test 05/21/18 12:08 Red Blood Count 4.36 M/uL (4.00-5.60) Mean Corpuscular Volume 89.3 fL (80.0-96.0) Mean Corpuscular Hemoglobin 29.0 pg (26.0-33.0) Mean Corpuscular Hemoglobin Concent 32.5 g/dL (32.0-36.0) Red Cell Distribution Width 14.5 % (11.5-14.5) Mean Platelet Volume 8.0 fL (7.2-11.1) Neutrophils (%) (Auto) 76.2 % (39.4-72.5) Lymphocytes (%) (Auto) 15.1 % (17.6-49.6) Monocytes (%) (Auto) 5.4 % (4.1-12.4) Eosinophils (%) (Auto) 2.5 % (0.4-6.7) Basophils (%) (Auto) 0.8 % (0.3-1.4) Nucleated RBC Relative Count (auto) 0.0 /100WBC Neutrophils # (Auto) 4.8 K/uL (2.0-7.4) Lymphocytes # (Auto) 0.9 K/uL (1.3-3.6) Monocytes # (Auto) 0.3 K/uL (0.3-1.0) Eosinophils # (Auto) 0.2 K/uL (0.0-0.5) Basophils # (Auto) 0.0 K/uL (0.0-0.1) Nucleated RBC Absolute Count (auto) 0.00 K/uL Sodium Level 137 mmol/L (137-145) Potassium Level 4.4 mmol/L (3.5-5.0) Chloride Level 110 mmol/L (98-107) Carbon Dioxide Level 18 mmol/L (22-30) Blood Urea Nitrogen 31 mg/dl (9-21) Creatinine 2.60 mg/dl (0.66-1.25) Glomerular Filtration Rate Calc 24.9 Random Glucose 213 mg/dl (75-110) Calcium Level 9.0 mg/dl (8.4-10.2) Magnesium Level 0.8 mg/dl (1.7-2.2) Total Bilirubin 0.8 mg/dl (0.2-1.3) Aspartate Amino Transf (AST/SGOT) 104 U/L (0-35) Alanine Aminotransferase (ALT/SGPT) 75 U/L (0-56) Alkaline Phosphatase 286 U/L (0-126) Total Protein 6.5 g/dl (6.3-8.2) Albumin 3.6 g/dl (3.5-5.0) Chemistry Test 05/21/18 12:08 White Blood Count 6.3 k/uL (4.5-11.0) Red Blood Count 4.36 M/uL (4.00-5.60) Hemoglobin 12.6 g/dL (14.0-18.0) Hematocrit 38.9 % (42.0-52.0) Mean Corpuscular Volume 89.3 fL (80.0-96.0) Mean Corpuscular Hemoglobin 29.0 pg (26.0-33.0) Mean Corpuscular Hemoglobin Concent 32.5 g/dL (32.0-36.0) Red Cell Distribution Width 14.5 % (11.5-14.5) Platelet Count 125 K/uL (150-450) Mean Platelet Volume 8.0 fL (7.2-11.1) Neutrophils (%) (Auto) 76.2 % (39.4-72.5) Lymphocytes (%) (Auto) 15.1 % (17.6-49.6) Monocytes (%) (Auto) 5.4 % (4.1-12.4) Eosinophils (%) (Auto) 2.5 % (0.4-6.7) Basophils (%) (Auto) 0.8 % (0.3-1.4) Nucleated RBC Relative Count (auto) 0.0 /100WBC Neutrophils # (Auto) 4.8 K/uL (2.0-7.4) Lymphocytes # (Auto) 0.9 K/uL (1.3-3.6) Monocytes # (Auto) 0.3 K/uL (0.3-1.0) Eosinophils # (Auto) 0.2 K/uL (0.0-0.5) Basophils # (Auto) 0.0 K/uL (0.0-0.1) Nucleated RBC Absolute Count (auto) 0.00 K/uL Glomerular Filtration Rate Calc 24.9 Calcium Level 9.0 mg/dl (8.4-10.2) Magnesium Level 0.8 mg/dl (1.7-2.2) Total Bilirubin 0.8 mg/dl (0.2-1.3) Aspartate Amino Transf (AST/SGOT) 104 U/L (0-35) Alanine Aminotransferase (ALT/SGPT) 75 U/L (0-56) Alkaline Phosphatase 286 U/L (0-126) Total Protein 6.5 g/dl (6.3-8.2) Albumin 3.6 g/dl (3.5-5.0) EKG/Imaging EKG Interpretation 12 lead EKG: Rhythm: Sinus tachycardia with ventricular rate of 121 bpm, occasional PVCs [place]: normal QRS: normal ST segments: normal Imaging Exam type: KUB SINGLE VIEW ABDOMEN History: constipation Comparison: December 18, 2017. Findings: There is a nonspecific bowel gas pattern present. Surgical clips present right upper quadrant abdomen. No gross evidence of organomegaly. There are extensive spondylotic changes the lumbar spine IMPRESSION: 1. Nonspecific bowel gas pattern Report Dictated By: Claire Brooke MD at 05/21/2018 1:38 PM Report E-Signed By: Claire Brooke MD at 05/21/2018 1:39 PM ED Course/Re-evaluation ED Course Patient was medicated in exam room, history and physical were obtained. Differential diagnoses were considered. On examination lungs are clear, heart regular, abdomen soft nontender. Patient was alert and oriented 4. Patient has a history of seizures and therefore a CBC, CMP, magnesium level were drawn. There is no CT scan of the head done, as I was done recently with no acute findings. The labs were unremarkable except the patient did have a low magnesium level of 0.8. I discussed the findings with the patient. We did go ahead and replenish his magnesium with 2 g bolus. With remainder the lab work looking good we will go ahead and discharge patient home with this time. He is to make sure that he is continuing to take his magnesium supplement. He is to follow-up with his primary care provider, Dr. Domínguez on or Monday this week to have his magnesium rechecked. He is return to emergency room if condition worsens. Patient verbalized understanding and agreement with plan. Decision to Disposition Date: May 21, 2018 Decision to Disposition Time: 14:07 Depart Departure Latest Vital Signs Vital Signs Date Time Temp Pulse Resp B/P (MAP) Pulse Ox O2 Delivery O2 Flow Rate FiO2 05/21/18 14:18 158/91 (113) 05/21/18 14:15 109 11 88 05/21/18 11:59 2.0 05/21/18 11:53 98.8 Room Air Impression: Primary Impression: Seizure Condition: Improved Disposition: HOME OR SELF-CARE Referrals: LOPEZ DOMÍNGUEZ MD (PCP) Patient Instructions: Recurrent Seizures in Adults (ED) Additional Instructions: Increase fluid intake. Get plenty of rest. Continue with your current medication. Follow up with Dr. Domínguez on or Monday this week, to have your labs rechecked. Return to the ER if condition worsens. RAHEEM STEIN May 21, 2018 11:57
[2018-05-21 12:17] LABS: PLATELET COUNT, AUTOMATED 125 K/uL (150-450)
[2018-05-21] MEDS ORDERED: MAGNESIUM SUL* 2 GM/50 ML IVPB 50 ML IVPB ONE (12:45)
--- NOTE | 2018-05-21 13:42 | EKG ---
FACILITY: [facility] PATIENT NAME: SHARDA RIGGS : [id number] MR: [id number] V: [id number] EXAM DATE: ORDERING PHYSICIAN: RAHEEM STEIN TECHNOLOGIST: JAMES Cortés Reason : SEIZURE Blood Pressure : / mmHG Vent. Rate : 121 BPM Atrial Rate : 121 BPM P-R Int : 128 ms QRS Dur : 086 ms QT Int : 332 ms P-R-T Axes : 040 063 032 degrees QTc Int : 471 ms Sinus tachycardia with occasional premature ventricular complexes Otherwise normal ECG When compared with ECG of 03-MAY-2018 11:38, premature ventricular complexes are now present T wave abnormalities inferiorly have resolved Confirmed by SYED CONCEPCION ([id number]) on 05/21/2018 8:38:41 PM Referred By: SARITA Confirmed By:SYED CONCEPCION
--- NOTE | 2018-05-21 13:47 | RADIOLOGY IMAGING REPORT ---
FACILITY: [facility] PATIENT NAME: Christian Kay : 1955 MR: [id number] V: [id number] EXAM DATE: ORDERING PHYSICIAN: RAHEEM STEIN TECHNOLOGIST: [place] [facility] [place] : 1955 Visit/Account:[id number] Date of Sevice: 05/21/2018 Exam type: KUB SINGLE VIEW ABDOMEN History: constipation Comparison: December 18, 2017. Findings: There is a nonspecific bowel gas pattern present. Surgical clips present right upper quadrant abdome n. No gross evidence of organomegaly. There are extensive spondylotic changes the lumbar spine IMPRESSION: 1. Nonspecific bowel gas pattern Report Dictated By: Claire Brooke MD at 05/21/2018 1:38 PM Report E-Signed By: Claire Brooke MD at 05/21/2018 1:39 PM WSN:[id number]
[2018-05-21 14:18] VITALS: BP 158/91
== END 2018-05-21 14:27 | disposition home or self-care (01) ==
LOC: ER 11:59
DX: R56.9 Unspecified convulsions (principal); E83.42 Hypomagnesemia
CPT/HCPCS: 74018; 83735; 85025; 93005; 96365; 99284; J3475; 82040; 82247; 82310; 82374; 82435; 82565; 82947; 84075; 84132; 84155; 84295; 84450; 84460; 84520

== ENCOUNTER 2018-06-29 11:56 | Emergency (ER) | payer MEDICARE, MEDICAID ==
[2015-10-18 10:34] VITALS: Wt 90.9 kg
--- NOTE | 2018-06-29 12:09 | ER Report ---
History and Physical Time Seen By MD: 12:09 HPI/ROS CHIEF COMPLAINT: Seizure HISTORY OF PRESENT ILLNESS: 63-year-old male patient presents to emergency room with complaint of seizure. Patient states he was at physical therapy when he had an absence seizure. He states he started off for a number of seconds. At that occurred they did send him to the emergency room for evaluation. Patient states he does not feel well. States he has headache, pain behind the left eye, as well as lower abdominal pain. Patient denies any fevers, chills, nausea, vomiting or diarrhea. Patient states this all occurred after his seizure. He states that this is the second time this month that he has had a seizure. If concerned that he may be illness causing the decreased seizure threshold. Patient denies any changes in his medications. REVIEW OF SYSTEMS: Respiratory: No cough, no dyspnea. Cardiovascular: No chest pain, no palpitations. Gastrointestinal: No vomiting, no abdominal pain. Musculoskeletal: No back pain. Allergies: Coded Allergies: [id number] (Verified Adverse Reaction, Severe, CONFUSION AND SUICIDAL IDEATION, 06/29/18) confusion and suicide ideation per patient report Home Meds Active Scripts Cephalexin 500 Mg Tab (KEFLEX 500 MG TAB) 500 Mg Tablet, 500 MG PO TID, #21 TAB Prov:RAHEEM STEIN [facility] 06/29/18 Potassium Chloride (KLOR-CON M20) 20 Meq Tab.er.prt, 20 MEQ PO QDAY, #30 TAB Prov:LUIS MARTIN REFRACTORY SPECIALIST 05/04/18 Fluticasone Prop 50 Mcg Ns (FLONASE 50 MCG NS) 16 Gm [place].susp, 1 SPRAY NS BID, #1 BOT Prov:RAHEEM STEIN [facility] 04/19/16 Reported Medications Amlodipine Besylate (AMLODIPINE BESYLATE) 10 Mg Tablet, 1 TAB PO QDAY, TAB 05/03/18 Paroxetine Hcl (PAROXETINE HCL) 40 Mg Tablet, 40 MG PO QDAY 05/03/18 Calcitriol (CALCITRIOL) 0.25 Mcg Cap, 0.25 MCG PO 3XW, CAP 05/03/18 Omeprazole (OMEPRAZOLE) 40 Mg Capsule.dr, 40 MG PO QDAY, CAP 05/03/18 Warfarin Sodium (WARFARIN SODIUM) 5 Mg Tablet, 5 MG PO SuTuThSa, TAB 05/03/18 Warfarin Sodium (WARFARIN SODIUM) 5 Mg Tablet, 2.5 MG PO MOWEDFRI, TAB 05/03/18 Ferrous Sulfate (IRON) 325 Mg Tablet, 325 MG PO DAILY 09/16/15 Oxygen (OXYGEN) Inha, 2 L INH PRN for SHORTNESS OF BREATH, L 09/16/15 Sodium Bicarbonate (SODIUM BICARBONATE) 325 Mg Tablet, 650 MG PO BID 02/06/15 Atorvastatin (LIPITOR) 80 Mg Tab, 1 TAB PO HS, TAB 10/31/14 Insulin Lispro 100 Un/Ml Vial (HUMALOG 100 U/ML VIAL) 100 Unit/1 Ml Vial, 25 UNIT SQ BEFORE MEALS, VIAL 11/19/13 Insulin Glargine (LANTUS) 100 Unit/Ml Soln, 50 UNIT SUBQ QHS 11/19/13 Levetiracetam (Keppra) 500 Mg Tablet, 500 MG PO QID, 0 Refills 02/03/11 Multivitamins W-Minerals (Multiple Vitamin) 1 Tab Tablet, 1 TAB PO DAILY, 0 Refills 09/03/10 Past Medical/Surgical History Patient has a past medical history of seizures, CVA, TIA, angina, DVT, hyper tension, hyperlipidemia, shortness of breath, asthma, pulmonary embolism, blood in stool, anemia, reflux, kidney sufficiency, back pain, difficulty swallowing, type 2 diabetes, cancer. Patient has a surgical history of cholecystectomy, colonoscopy. Patient has a family medical history of cancer. Reviewed Nurses Notes: Yes Hx Smoking: No Smoking Status: Never Smoker Exposure to Second Hand Smoke?: No Hx Substance Use Disorder: No Hx Alcohol Use: No (20 YRS AGO) Constitutional Vital Sign - Last 24 Hours 06/29/18 06/29/18 06/29/18 06/29/18 12:03 12:04 12:26 12:30 Temp 97.6 Pulse 96 88 Resp 16 14 B/P (MAP) 146/94 (111) 146/94 136/88 (104) Pulse Ox 91 92 O2 Delivery Room Air 06/29/18 06/29/18 06/29/18 06/29/18 12:32 12:56 13:00 13:05 Pulse 86 85 Resp 14 20 B/P (MAP) 132/80 (97) Pulse Ox 93 90 O2 Flow Rate 1.0 06/29/18 06/29/18 06/29/18 06/29/18 14:00 14:05 14:10 14:30 Pulse 83 81 Resp 18 18 B/P (MAP) 131/82 (98) 131/84 (100) Pulse Ox 90 90 06/29/18 06/29/18 06/29/18 06/29/18 14:40 15:00 15:10 15:15 Pulse 85 84 89 Resp 19 11 14 B/P (MAP) 135/86 (102) Pulse Ox 90 91 90 06/29/18 06/29/18 06/29/18 06/29/18 15:30 15:45 16:00 16:15 Pulse 78 82 Resp 51 17 B/P (MAP) 132/87 (102) 127/87 (100) Pulse Ox 93 93 06/29/18 06/29/18 06/29/18 16:30 16:45 17:00 Pulse 80 Resp 26 B/P (MAP) 135/91 (106) 141/89 (106) Pulse Ox 91 Physical Exam General Appearance: The patient is alert, has no immediate need for airway protection and no current signs of toxicity. Respiratory: Chest is non tender, lungs are clear to auscultation. Cardiac: regular rate and rhythm Gastrointestinal: Abdomen is soft and non tender, no masses, bowel sounds normal. Musculoskeletal: Neck: Neck is supple and non tender. Extremities have full range of motion and are non tender. Skin: No rashes or lesions. Neuro: Patient alert and oriented 4, cranial nerves II through XII grossly intact. Patient did refuse to do some of the testing such as checking extraocular movement. DIFFERENTIAL DIAGNOSIS: After history and physical exam differential diagnosis was considered for seizure, gastroenteritis, sinus infection, headache, intracranial hemorrhage. Medical Decision Making Data Points Result Diagram: 06/29/18 1229 06/29/18 1229 Laboratory Hematology Test 06/29/18 12:29 06/29/18 12:46 06/29/18 16:00 Red Blood Count 5.09 M/uL (4.00-5.60) Mean Corpuscular Volume 89.9 fL (80.0-96.0) Mean Corpuscular Hemoglobin 29.9 pg (26.0-33.0) Mean Corpuscular Hemoglobin Concent 33.3 g/dL (32.0-36.0) Red Cell Distribution Width 13.9 % (11.5-14.5) Mean Platelet Volume 8.9 fL (7.2-11.1) Neutrophils (%) (Auto) 59.0 % (39.4-72.5) Lymphocytes (%) (Auto) 28.6 % (17.6-49.6) Monocytes (%) (Auto) 7.9 % (4.1-12.4) Eosinophils (%) (Auto) 3.5 % (0.4-6.7) Basophils (%) (Auto) 1.0 % (0.3-1.4) Nucleated RBC Relative Count (auto) 0.0 /100WBC Neutrophils # (Auto) 2.8 K/uL (2.0-7.4) Lymphocytes # (Auto) 1.4 K/uL (1.3-3.6) Monocytes # (Auto) 0.4 K/uL (0.3-1.0) Eosinophils # (Auto) 0.2 K/uL (0.0-0.5) Basophils # (Auto) 0.0 K/uL (0.0-0.1) Nucleated RBC Absolute Count (auto) 0.00 K/uL Sodium Level 140 mmol/L (137-145) Potassium Level 3.6 mmol/L (3.5-5.0) Chloride Level 108 mmol/L (98-107) Carbon Dioxide Level 19 mmol/L (22-30) Blood Urea Nitrogen 18 mg/dl (9-21) Creatinine 2.70 mg/dl (0.66-1.25) Glomerular Filtration Rate Calc 23.8 Random Glucose 260 mg/dl (75-110) Calcium Level 9.1 mg/dl (8.4-10.2) Magnesium Level 1.0 mg/dl (1.7-2.2) Total Bilirubin 0.5 mg/dl (0.2-1.3) Aspartate Amino Transf (AST/SGOT) 49 U/L (0-35) Alanine Aminotransferase (ALT/SGPT) 51 U/L (0-56) Alkaline Phosphatase 202 U/L (0-126) Total Protein 6.2 g/dl (6.3-8.2) Albumin 3.8 g/dl (3.5-5.0) Amylase Level 69 U/L (0-110) Lipase 30 U/L (23-300) Influenza Virus Type A (PCR) Negative (NEGATIVE) Influenza Virus Type B (PCR) Negative (NEGATIVE) Whole Blood Glucose 228 mg/DL (75-110) Urine Color Yellow Urine Clarity Slightly-cloudy Urine pH 5.0 pH (4.8-9.5) Urine Specific [place] 1.011 Urine Protein Negative mg/dL (NEGATIVE) Urine Glucose (UA) Negative mg/dL (NEGATIVE) Urine Ketones Negative mg/dL (NEGATIVE) Urine Blood Large (NEGATIVE) Urine Nitrite Negative (NEGATIVE) Urine Bilirubin Negative (NEGATIVE) Urine Urobilinogen Negative mg/dL (0.2-1.9) Urine Leukocyte Esterase Negative (NEGATIVE) Urine RBC 14 /HPF (0-2/HPF) Urine WBC 6 /HPF (0-5/HPF) Urine Squamous Epithelial Cells None /LPF (NONE-FEW) Urine Bacteria Negative /HPF (NONE-FEW) Urine Mucus None /HPF (NONE-FEW) Chemistry Test 06/29/18 12:29 06/29/18 12:46 06/29/18 16:00 White Blood Count 4.8 k/uL (4.5-11.0) Red Blood Count 5.09 M/uL (4.00-5.60) Hemoglobin 15.2 g/dL (14.0-18.0) Hematocrit 45.7 % (42.0-52.0) Mean Corpuscular Volume 89.9 fL (80.0-96.0) Mean Corpuscular Hemoglobin 29.9 pg (26.0-33.0) Mean Corpuscular Hemoglobin Concent 33.3 g/dL (32.0-36.0) Red Cell Distribution Width 13.9 % (11.5-14.5) Platelet Count 93 K/uL (150-450) Mean Platelet Volume 8.9 fL (7.2-11.1) Neutrophils (%) (Auto) 59.0 % (39.4-72.5) Lymphocytes (%) (Auto) 28.6 % (17.6-49.6) Monocytes (%) (Auto) 7.9 % (4.1-12.4) Eosinophils (%) (Auto) 3.5 % (0.4-6.7) Basophils (%) (Auto) 1.0 % (0.3-1.4) Nucleated RBC Relative Count (auto) 0.0 /100WBC Neutrophils # (Auto) 2.8 K/uL (2.0-7.4) Lymphocytes # (Auto) 1.4 K/uL (1.3-3.6) Monocytes # (Auto) 0.4 K/uL (0.3-1.0) Eosinophils # (Auto) 0.2 K/uL (0.0-0.5) Basophils # (Auto) 0.0 K/uL (0.0-0.1) Nucleated RBC Absolute Count (auto) 0.00 K/uL Glomerular Filtration Rate Calc 23.8 Calcium Level 9.1 mg/dl (8.4-10.2) Magnesium Level 1.0 mg/dl (1.7-2.2) Total Bilirubin 0.5 mg/dl (0.2-1.3) Aspartate Amino Transf (AST/SGOT) 49 U/L (0-35) Alanine Aminotransferase (ALT/SGPT) 51 U/L (0-56) Alkaline Phosphatase 202 U/L (0-126) Total Protein 6.2 g/dl (6.3-8.2) Albumin 3.8 g/dl (3.5-5.0) Amylase Level 69 U/L (0-110) Lipase 30 U/L (23-300) Influenza Virus Type A (PCR) Negative (NEGATIVE) Influenza Virus Type B (PCR) Negative (NEGATIVE) Whole Blood Glucose 228 mg/DL (75-110) Urine Color Yellow Urine Clarity Slightly-cloudy Urine pH 5.0 pH (4.8-9.5) Urine Specific [place] 1.011 Urine Protein Negative mg/dL (NEGATIVE) Urine Glucose (UA) Negative mg/dL (NEGATIVE) Urine Ketones Negative mg/dL (NEGATIVE) Urine Blood Large (NEGATIVE) Urine Nitrite Negative (NEGATIVE) Urine Bilirubin Negative (NEGATIVE) Urine Urobilinogen Negative mg/dL (0.2-1.9) Urine Leukocyte Esterase Negative (NEGATIVE) Urine RBC 14 /HPF (0-2/HPF) Urine WBC 6 /HPF (0-5/HPF) Urine Squamous Epithelial Cells None /LPF (NONE-FEW) Urine Bacteria Negative /HPF (NONE-FEW) Urine Mucus None /HPF (NONE-FEW) Urinalysis Test 06/29/18 16:00 Urine Color Yellow Urine Clarity Slightly-cloudy Urine pH 5.0 pH (4.8-9.5) Urine Specific [place] 1.011 Urine Protein Negative mg/dL (NEGATIVE) Urine Glucose (UA) Negative mg/dL (NEGATIVE) Urine Ketones Negative mg/dL (NEGATIVE) Urine Blood Large (NEGATIVE) Urine Nitrite Negative (NEGATIVE) Urine Bilirubin Negative (NEGATIVE) Urine Urobilinogen Negative mg/dL (0.2-1.9) Urine Leukocyte Esterase Negative (NEGATIVE) Urine RBC 14 /HPF (0-2/HPF) Urine WBC 6 /HPF (0-5/HPF) Urine Squamous Epithelial Cells None /LPF (NONE-FEW) Urine Bacteria Negative /HPF (NONE-FEW) Urine Mucus None /HPF (NONE-FEW) EKG/Imaging Imaging CT ABDOMEN PELVIS W/O CON HISTORY: Seizure and abdominal pain TECHNIQUE: Axial images acquired through the abdomen/pelvis. Coronal and sagittal reformatting also performed. No IV contrast administered.Dose Lowering Technique One of the following dose optimization techniques was utilized in the performance of this exam: Automated exposure control; adjustment of the mA and/or kV according to the patient's size; or use of an iterative reconstruction technique. Specific details can be referenced in the facility's radiology CT exam operational policy. COMPARISON: January 17, 2014 FINDINGS: Visualized lung bases: There is motion artifact present there is a 3 mm noncalcified nodule medial aspect left lower lobe best seen on image 12 of series 4 appears unchanged when compared to the prior study. There is a 4 mm nodular density inferior lingula best seen on image 44 appears unchanged There is an 8 mm noncalcified nodule posterior aspect of the left lower lobe which is new when compared to the prior study There is a 6 mm noncalcified nodule medial aspect of the right lower lobe best seen on image 28 that has increased from 3 mm previously Hepatobiliary: There postsurgical changes from a cholecystectomy Spleen: There is a small 2 mm subcapsular calcification in the lateral aspect of the spleen Adrenals: Negative. Pancreas: Fatty replaced. There is a punctate calcification in the uncinate process appears relatively unchanged Kidneys ureters and bladder: 2.5 cm cyst upper pole of the right kidney that is increased in size is mild to moderate perinephric stranding which has slightly increased. There is no evidence of urolithiasis hydronephrosis or hydroureter. The bladder is very distended with the bladder dome extending to 6 cm below the level the umbilicus. There is extensive bladder wall thickening and narrow necked diverticula projecting from the left lateral aspect of the bladder . Genitalia: Prostate gland is enlarged impinging upon the floor the bladder seminal vesicles appear prominent GI: There is diverticulosis of the left side of the colon although no CT evidence of acute diverticulitis . The appendix is visualized and does not appear inflamed. There is no evidence of bowel obstruction Vessels/spaces/nodes: Negative. Bones/soft tissues: There are extensive spondylotic changes of the lumbar spine 9 mm sclerotic density in the left iliac bone just above the acetabulum has increased in size from 6 mm previously. 5 mm sclerotic density in the L4 vertebral body has increased from 2 mm previously these may simply represent bone islands Additional findings: None pertinent. IMPRESSION: There are two pulmonary nodules measuring up to 4 mm in the inferior lingula th at appears stable. There is an 8 mm noncalcified nodule posterior aspect left lower lobe which is new when compared the prior study and a 6 mm noncalcified nodule medial aspect right lower lobe which has increased from 3 mm previously. FLE[employer] SOCIETY FOLLOW-UP GUIDELINES FOR NEWLY DETECTED INCIDENTAL NODULES IN PERSONS 35 YEARS OF AGE OR OLDER. *These recommendations do NOT apply to lung cancer screening, patients with immunosuppression or patients with a known primary malignancy. MULTIPLE SOLID NODULES If nodule size is < 6 mm: * Low risk patient ? No routine follow-up. * High risk patient ? Optional CT at 12 months. If nodule size is 6-8 mm: * Low risk patient ? CT at 3-6 months, then consider CT at 18-24 months if no change. * High risk patient ? CT at 3-6 months, then CT at 18-24 months if no change. If nodule size is > 8 mm: * Low risk patient ? CT at 3-6 months, then onsider CT at 18-24 months if no change. * High risk patient ? CT at 3-6 months, then consider CT at 18-24 months if no change. LOW RISK PATIENT: Minimal or absent history of tobacco use and of other known risk factors.HIGH RISK PATIENT: Tobacco use, family history of lung cancer, upper pulmonary lobe location of nodule, presence of emphysema, pulmonary fibrosis, older age. Italo H, Drew DP, Kingo JM, et al. Guidelines for Management of Incidental Pulmonary Nodules Detected on CT Images: From the Fleischner Society 2017. Radiology. uchnipn Postsurgical changes from a cholecystectomy Fatty replaced pancreas 2.5 cm cyst upper pole right kidney has increased in size Mild to moderate perinephric stranding bilaterally has increased slightly. No evidence of urolithiasis The bladder is very distended with diffuse bladder wall thickening and to narrow necked diverticulum projecting along the left Enlarged prostate gland Diverticulosis left-sided colon although no CT evidence of acute diverticulitis Is a spondylotic changes lumbar spine Sclerotic densities in the left iliac bone and L4 vertebral body have slightly increased in size. This may simply represent bone islands however if there is a concern for osseous metastases bone scan may be helpful. Signed report Report Dictated By: Claire Brooke MD at 06/29/2018 2:07 PM Report E-Signed By: Claire Brooke MD at 06/29/2018 2:28 PM Exam type: CHEST PA LAT History: Cough, patient states she "passed out" Comparison: May 03, 2018.And April 19, 2016 Findings: The lungs are free of acute effusions, infiltrates or edema. Cardiac silhouette is normal in size. Trachea is in midline. There are surgical clips the upper abdomen. IMPRESSION: 1. No acute cardiopulmonary process is seen Report Dictated By: Claire Brooke MD at 06/29/2018 2:00 PM Report E-Signed By: Claire Brooke MD at 06/29/2018 2:02 PM EXAMINATION: Head CT without intravenous contrast HISTORY: Seizure. COMPARISON: 05/03/2018. TECHNIQUE: Contiguous axial images were obtained from the skull base to the vertex without intravenous contrast. Sagittal and coronal reformatted images are also submitted. One of the following dose optimization techniques was utilized in the performance of this exam: Automated exposure control; adjustment of the mA and/or kV according to the patient's size; or use of an iterative reconstruction technique. Specific details can be referenced in the facility's radiology CT exam operational policy. FINDINGS: Brain and intracranial structures: Regions of encephalomalacia in the right frontal, parietal, and occipital lobes, similar to previous examination. Mild patchy hypoattenuation elsewhere in the white matter, likely chronic small vessel ischemic changes. Probable small meningioma overlying the right sylvian fissure measuring 1.5 cm, unchanged. Mild generalized cerebral volume loss with corresponding sulcal and ventricular prominence. The basal cisterns are patent. No midline shift, acute hemorrhage, or evidence of acute infarct. Vessels: Calcification of the carotid siphons. Calvarium / scalp: Negative. No acute fracture. Skull base / visualized face: Negative. Visualized sinuses / orbits: Trace mucosal thickening in the ethmoid air cells. IMPRESSION: No CT evidence of acute intracranial pathology. Unchanged regions of encephalomalacia in the right cerebral hemisphere. Probable small meningioma overlying the right sylvian fissure, unchanged. Report Dictated By: Dandy Kline MD at 06/29/2018 2:03 PM Report E-Signed By: Dandy Kline MD at 06/29/2018 2:13 PM ED Course/Re-evaluation ED Course Patient was admitted to an exam room, history and physical were obtained. Differential diagnoses were considered. On examination lungs are clear, heart is regular, abdomen soft nontender. Patient is alert and oriented 4, cranial nerves II through XII grossly intact. Patient does have some testing that he refuses to do, he will not check extraocular movement with me. An IV was started, a CBC, CMP, EKG, troponin, x-ray were done. Lab work and radiology studies were unremarkable. CT scan of the head and abdomen and pelvis were negative except for patient did have bladder wall thickening. We discussed doing a urinalysis. requested that the patient receive a catheter. Catheter urine was obtained which showed 6 white blood cells and 14 red blood cells. Is my belief that the patient is having hematuria secondary to urinary tract infection. I discussed the findings with the patient and his . We will go ahead and treat him with antibiotics. Patient was prescribed Keflex 3 times a day for the next week. They're to follow-up with her primary care provider in the next week. They verbalized understanding and agreement with plan. Decision to Disposition Date: Jun 29, 2018 Decision to Disposition Time: 17:17 Depart Departure Latest Vital Signs Vital Signs Date Time Temp Pulse Resp B/P (MAP) Pulse Ox O2 Delivery O2 Flow Rate FiO2 06/29/18 17:00 141/89 (106) 06/29/18 16:45 80 26 91 06/29/18 12:32 1.0 06/29/18 12:04 97.6 Room Air Impression: Primary Impression: Urinary tract infection Additional Impression: Seizure Condition: Improved Disposition: HOME OR SELF-CARE Referrals: LOPEZ DOMÍNGUEZ MD (PCP) New Scripts Cephalexin 500 Mg Tab (KEFLEX 500 MG TAB) 500 Mg Tablet 500 MG PO TID, #21 TAB Prov: RAHEEM STEIN 06/29/18 Patient Instructions: Urinary Tract Infection in Men (ED) Additional Instructions: Increase fluid intake. Get plenty of rest. Follow up with your primary care provider on Monday or Monday this coming week. Return to the ER if condition worsens. I suspect that the infection has lowered the seizure threshold resulting in the seizure today. Problem Qualifiers Primary Impression: Urinary tract infection Urinary tract infection type: acute cystitis Hematuria presence: with hematuria Qualified Codes: N30.01 - Acute cystitis with hematuria RAHEEM STEIN Jun 29, 2018 12:09
[2018-06-29] MEDS ORDERED: NS(*) 0.9% 500 ML BAG 500 ML IV ONE (12:17)
[2018-06-29 12:50] LABS: PLATELET COUNT, AUTOMATED 93 K/uL (150-450)
[2018-06-29] MEDS ORDERED: IOPAMIDOL 76% 100 ML INFUS BTL 0 ML ONE (12:56)
[2018-06-29] MEDS ORDERED: MAGNESIUM SUL* 2 GM/50 ML IVPB 50 ML IVPB ONE (13:00)
--- NOTE | 2018-06-29 14:08 | RADIOLOGY IMAGING REPORT ---
FACILITY: [facility] PATIENT NAME: Christian Kay : 1955 MR: [id number] V: [id number] EXAM DATE: ORDERING PHYSICIAN: RAHEEM STEIN TECHNOLOGIST: Location: [facility] [place] Patient: Christian Kay : 1955 Visit/Account:[id number] Date of Sevice: 06/29/2018 Exam type: CHEST PA LAT History: Cough, patient states she "passed out" Comparison: May 03, 2018.And April 19, 2016 Findings: The lungs are free of acute effusions, infiltrates or edema. Cardiac silhouette is normal in size. Trachea is in midline. There are surgical clips the upper abdomen. IMPRESSION: 1. No acute cardiopulmonary process is seen Report Dictated By: Claire Brooke MD at 06/29/2018 2:00 PM Report E-Signed By: Claire Brooke MD at 06/29/2018 2:02 PM WSN:[email or web address]
--- NOTE | 2018-06-29 14:44 | RADIOLOGY IMAGING REPORT ---
[place] [facility] [place]: Christian Kay : 1955 MR: [id number] V: [id number] EXAM DATE: ORDERING PHYSICIAN: RAHEEM STEIN TECHNOLOGIST: Location: [facility] - [place], [place] Patient: Christian Kay : 1955 Visit/Account:[id number] Date of Sevice: 06/29/2018 EXAMINATION: Head CT without intravenous contrast HISTORY: Seizure. COMPARISON: 05/03/2018. TECHNIQUE: Contiguous axial images were obtained from the skull base to the vertex without intraven ous contrast. Sagittal and coronal reformatted images are also submitted. One of the following dose optimization techniques was utilized in the performance of this exam: Autom ated exposure control; adjustment of the mA and/or kV according to the patient's size; or use of an i terative reconstruction technique. Specific details can be referenced in the facility's radiology C T exam operational policy. FINDINGS: Brain and intracranial structures: Regions of encephalomalacia in the right frontal, parietal, and o ccipital lobes, similar to previous examination. Mild patchy hypoattenuation elsewhere in the white m atter, likely chronic small vessel ischemic changes. Probable small meningioma overlying the right sy lvian fissure measuring 1.5 cm, unchanged. Mild generalized cerebral volume loss with corresponding sulcal and ventricular prominence. The basal cisterns are patent. No midline shift, acute hemorrhage, or evidence of acute infarct. Vessels: Calcification of the carotid siphons. Calvarium / scalp: Negative. No acute fracture. Skull base / visualized face: Negative. Visualized sinuses / orbits: Trace mucosal thickening in the ethmoid air cells. IMPRESSION: No CT evidence of acute intracranial pathology. Unchanged regions of encephalomalacia in the right cerebral hemisphere. Probable small meningioma overlying the right sylvian fissure, unchanged. Report Dictated By: Dandy Kline MD at 06/29/2018 2:03 PM Report E-Signed By: Dandy Kline MD at 06/29/2018 2:13 PM WSN:[id number]
--- NOTE | 2018-06-29 14:45 | RADIOLOGY IMAGING REPORT ---
FACILITY: [facility] - [place] PATIENT NAME: Christian Kay : 1955 MR: [id number] V: [id number] EXAM DATE: ORDERING PHYSICIAN: RAHEEM STEIN TECHNOLOGIST: Location: [facility] Patient: Christian Kay : 1955 Visit/Account:[id number] Date of Sevice: 06/29/2018 CT ABDOMEN PELVIS W/O CON HISTORY: Seizure and abdominal pain TECHNIQUE: Axial images acquired through the abdomen/pelvis. Coronal and sagittal reformatting also performed. No IV contrast administered.Dose Lowering Technique One of the following dose optimization techniques was utilized in the performance of this exam: Autom ated exposure control; adjustment of the mA and/or kV according to the patient's size; or use of an i terative reconstruction technique. Specific details can be referenced in the facility's radiology C T exam operational policy. COMPARISON: January 17, 2014 FINDINGS: Visualized lung bases: There is motion artifact present there is a 3 mm noncalcified nodule medial a spect left lower lobe best seen on image 12 of series 4 appears unchanged when compared to the prior study. There is a 4 mm nodular density inferior lingula best seen on image 44 appears unchanged There is an 8 mm noncalcified nodule posterior aspect of the left lower lobe which is new when compar ed to the prior study There is a 6 mm noncalcified nodule medial aspect of the right lower lobe best seen on image 28 that has increased from 3 mm previously Hepatobiliary: There postsurgical changes from a cholecystectomy Spleen: There is a small 2 mm subcapsular calcification in the lateral aspect of the spleen Adrenals: Negative. Pancreas: Fatty replaced. There is a punctate calcification in the uncinate process appears relativ jorge luis unchanged Kidneys ureters and bladder: 2.5 cm cyst upper pole of the right kidney that is increased in size is mild to moderate perinephric stranding which has slightly increased. There is no evidence of urolith iasis hydronephrosis or hydroureter. The bladder is very distended with the bladder dome extending to 6 cm below the level the umbilicus. There is extensive bladder wall thickening and narrow necked diverticula projecting from the left la teral aspect of the bladder . Genitalia: Prostate gland is enlarged impinging upon the floor the bladder seminal vesicles appear p rominent GI: There is diverticulosis of the left side of the colon although no CT evidence of acute diverticu litis . The appendix is visualized and does not appear inflamed. There is no evidence of bowel obst ruction Vessels/spaces/nodes: Negative. Bones/soft tissues: There are extensive spondylotic changes of the lumbar spine 9 mm sclerotic densi ty in the left iliac bone just above the acetabulum has increased in size from 6 mm previously. 5 mm sclerotic density in the L4 vertebral body has increased from 2 mm previously these may simply repre sent bone islands Additional findings: None pertinent. IMPRESSION: There are two pulmonary nodules measuring up to 4 mm in the inferior lingula that appears stable. There is an 8 mm noncalcified nodule posterior aspect left lower lobe which is new when compared the prior study and a 6 mm noncalcified nodule medial aspect right lower lobe which has increased from 3 mm previously. FLE[employer]CHNER SOCIETY FOLLOW-UP GUIDELINES FOR NEWLY DETECTED INCIDENTAL NODULES IN PERSONS 35 YEARS OF AGE OR OLDER. *These recommendations do NOT apply to lung cancer screening, patients with immunosuppression or marcy ents with a known primary malignancy. MULTIPLE SOLID NODULES If nodule size is < 6 mm: * Low risk patient ? No routine follow-up. * High risk patient ? Optional CT at 12 months. If nodule size is 6-8 mm: * Low risk patient ? CT at 3-6 months, then consider CT at 18-24 months if no change. * High risk patient ? CT at 3-6 months, then CT at 18-24 months if no change. If nodule size is > 8 mm: * Low risk patient ? CT at 3-6 months, then onsider CT at 18-24 months if no change. * High risk patient ? CT at 3-6 months, then consider CT at 18-24 months if no change. LOW RISK PATIENT: Minimal or absent history of tobacco use and of other known risk factors.HIGH RISK PATIENT: Tobacco use, family history of lung cancer, upper pulmonary lobe location of nodule, presenc e of emphysema, pulmonary fibrosis, older age. Italo H, Drew DP, Macario MEJIA, et al. Guidelines for Management of Incidental Pulmonary Nodules Dete cted on CT Images: From the Fleischner Society 2017. Radiology. uchnipn Postsurgical changes from a cholecystectomy Fatty replaced pancreas 2.5 cm cyst upper pole right kidney has increased in size Mild to moderate perinephric stranding bilaterally has increased slightly. No evidence of urolithias is The bladder is very distended with diffuse bladder wall thickening and to narrow necked diverticulum projecting along the left Enlarged prostate gland Diverticulosis left-sided colon although no CT evidence of acute diverticulitis Is a spondylotic changes lumbar spine Sclerotic densities in the left iliac bone and L4 vertebral body have slightly increased in size. Th is may simply represent bone islands however if there is a concern for osseous metastases bone scan m ay be helpful. Signed report Report Dictated By: Claire Brooke MD at 06/29/2018 2:07 PM Report E-Signed By: Claire Brooke MD at 06/29/2018 2:28 PM WSN:[email or web address]
[2018-06-29 17:00] VITALS: BP 141/89
[2018-06-29] MEDS ORDERED: CEPH500T7 PO (17:15)
== END 2018-06-29 17:44 | disposition home or self-care (01) ==
LOC: ER 12:10
DX: N30.01 Acute cystitis with hematuria (principal); R56.9 Unspecified convulsions
CPT/HCPCS: 36416; 70450; 71046; 74176; 81001; 82150; 82948; 83690; 83735; 85025; 87088; 87502; 96361; 96365; 99284; J3475; J7040; 82040; 82247; 82310; 82374; 82435; 82565; 82947; 84075; 84132; 84155; 84295; 84450; 84460; 84520; Q9967

== ENCOUNTER → 2018-07-09 | Outpatient (CLI) | payer MEDICARE, MEDICAID ==
[2015-10-18 10:34] VITALS: BMI 29.1
[~2018-07-09] MED LIST changes: +CEPH500T7 PO
== END ==
LOC: LAB 10:44
PROVIDERS: ATTEND Internal Medicine Nephrology
DX: I12.9 Hypertensive chronic kidney disease with stage 1 through stage 4 chronic kidney disease, or unspecified chronic kidney disease (principal); E11.29 Type 2 diabetes mellitus with other diabetic kidney complication; N18.3 Chronic kidney disease, stage 3 (moderate); N25.81 Secondary hyperparathyroidism of renal origin
CPT/HCPCS: 36415; 82040; 82310; 82374; 82435; 82565; 82947; 83970; 84100; 84132; 84295; 84520; 85018

== ENCOUNTER 2018-08-09 10:30 | Outpatient (RCR) | payer MEDICARE, MEDICAID ==
[2015-10-18 10:34] VITALS: BMI 29.1
--- NOTE | 2018-05-14 14:13 | PT INITIAL EVALUATION ---
MEDICAL DIAGNOSIS: LE weakness TREATMENT DIAGNOSIS: LE weakness, recurrent falls, cervicalgia and R hip pain post-fall DATE OF ONSET: 05/03/18 SUBJECTIVE: Christian Kay presents to PT for LE weakness and also reports R cervicalgia and R hip pain from a fall at [facility] 05/03/18. He was hospitalized for hypokalemia. Christian rates cervical pain 7/10, has cervical OA and states his prior level of pain was 4-5/10. He has a RW, electric wheel chair. Pain location is R lateral neck and R posterior and lateral hip, 7/10, worse with walking, sitting and better with heat. REHAB PROBLEM LIST: Increased Pain Decreased ROM Decreased Strength Impaired Transfers Decreased Endurance Decreased Balance Decreased Function Decreased Mobility Decreased Gait PREVIOUS MEDICAL HISTORY: CVA with L sided-weakness, seizure disorder, renal insufficiency, HTN, DM, skin cancer OCCUPATION: Disabled, lives in a trailer with his , has home help (brain waiver program). OBJECTIVE: Posture: Forward head posture, heels 8" apart. ROM: Cervical AROM 50% rotation B, R painful, flexion 75%, extension 50%, extension reducing pain. Hip PROM 120 degrees flexion, tight lateral hip. Hamstring flexibility 40 deg. R, 60 deg. L. Strength: L LE 4-/5, R LE 4/5. Palpation: Painful R lateral cervical muscles, suboccipital region, jump sign R piriformis. Mobility: Sit to stand without UE use, unsteady immediate standing balance. Gait: Christian ambulates with hand held assist, feet not passing each other or clearing the floor, heels 6" apart. Balance: Tinetti Gait and Balance 12, a high fall risk. Christian requires supervision to turn 180 degrees, double limb support only. ASSESSMENT: Christian Kay presents with altered gait and balance, high fall risk, LE weakness, post-fall cervicalgia and R hip pain. He did well with stretching to reduce pain and is started on stretching HEP with his aide's supervision. Short Term Goals One month: Christian ambulates with feet passing each other, Tinetti Gait and Balance 17 to reduce fall risk. Two months: Christian scores 22-24 on the Tinetti Gait and Balance test to reduce fall risk, reports R hip and neck pain are back to prior level of pain. Patient's Goals Reduce neck and R hip pain from fall 05/03/18, be more steady with gait. reduce falls. PLAN: Patient to be seen for Manual Therapy Strengthening/condition Ice/Heat Range of Motion Spinal Stabilization Stretching Neuromuscular Re-ed Electrical Stim Gait Trg/Balance Trg Home Exercise Program 2x/Week for 2 Months Thank you for this referral. If you have any questions, comments, or concerns about this report or plan, please contact me at . SHERLEYD
--- NOTE | 2018-06-22 12:04 | PT PLAN OF CARE ---
Physician: Dr. Mina Harmon Patient is being seen: 2x/week Therapist: Marion Powell, PT Medical Diagnosis: LE weakness Treatment Diagnosis: LE weakness, recurrent falls, cervicalgia and R hip pain post-fall Date of Onset: 05/03/18 Date of Initial Evaluation: 05/14/18 Date patient was last seen: 06/22/18 Number of treatments: 10 Number of cancellations/No shows: 1 INTERVENTIONS: Strengthening/condition, Neuromuscular Re-ed, Gait Trg/Balance Trg GOALS: One month: Christian ambulates with feet passing each other (not met), Tinetti Gait and Balance 17 to reduce fall risk (progressing). Two months: Christian scores 22-24 on the Tinetti Gait and Balance test to reduce fall risk, reports R hip and neck pain are back to prior level of pain. (all not met) PATIENT'S GOAL: Reduce neck and R hip pain from fall 05/03/18 (progressing), be more steady with gait (not met), reduce falls (progressing). Patient Compliance: Excellent Prognosis: Excellent Reasons for continuing therapy: S: Christian reports his cervical and R hip pain is reduced, but not prior levels. He forgot to use O2 last night and is fatigued. Posture: Forward head posture, heels 6" apart. ROM: Cervical AROM 75% rotation B, flexion 75%, extension 50%. Hip PROM 120 degrees flexion, still tight lateral hip. Strength: L LE remains 4-/5, R LE improved to 4+/5. Gait/Balance: Tinetti Gait and Balance improved to 16, a 43% impairment. Christian ambulates with flexed LE's, feet not passing each other and is unsteady turning. Some days he's ambulated with feet passing each other and clearing the floor. O2 with ambulation 87%, HR 110, BP with exercise 136/89. Double limb support only today. Mobility: Sit to stand without UE use, unsteady immediate standing balance. A/P: Christian Kay has improved his Tinetti score but needs to use O2 to function better in PT and in general. If you agree, we'll continue 2x/week, 6 weeks to goals set. Thank you. CANDELARIA
--- NOTE | 2018-08-07 12:53 | PT PLAN OF CARE ---
Physician: Dr. Mina Harmon Patient is being seen: 2x/week Therapist: Marion Powell PT Medical Diagnosis: LE weakness Treatment Diagnosis: LE weakness, recurrent falls, cervicalgia and R hip pain post-fall Date of Onset: 05/03/18 Date of Initial Evaluation: 05/14/18 Date patient was last seen: 08/07/18 Number of treatments: 20 Number of cancellations/No shows: 3 INTERVENTIONS: Strengthening/condition, Neuromuscular Re-ed, Gait Trg/Balance Trg, Manual Therapy, Heat, Stretching GOALS: One month: Christian ambulates with feet passing each other (not met), Tinetti Gait and Balance 17 to reduce fall risk (met). Two months: Christian scores 22-24 on the Tinetti Gait and Balance test to reduce fall risk (progressing, 21), reports R hip (not met) and neck pain (met) are back to prior level of pain. PATIENT'S GOAL: Reduce neck and R hip pain from fall 05/03/18 (progressing), be more steady with gait (met), reduce falls (met). Patient Compliance: Excellent Prognosis: Excellent Reasons for continuing therapy: S: Christian reports he's more steady, as steady as he can be, with gait and balance. He still has imbalance with immediate standing. His cervical region is back to baseline pain while R hip is still worse, 4/10 with transfers and turning. Posture: Forward head posture, heels 2" apart. ROM: Cervical AROM 75% rotation L, full rotation R, flexion and extension 75%. Hip PROM 120 degrees flexion, tight lateral hip still. Hamstring flexibility improved to 50 deg. R, 60 deg. L. Palpation: Painful R G. medius and IT band, TFL. Gait/Balance: Independent gait with late heelstrike to early heel off, flexed LE's, trunk flexed ~25 degrees, feet don't pass each other or clear the floor. Tinetti Gait and Balance 21, a fall risk for community ambulation. Steady standing on firm, eyes shut, turns in 4 seconds L and R with control, catches balance with push to the chest. Mobility: Sit to stand without UE use, steady immediate standing balance. A/P: Christian Kay has improved gait and balance. He still has R hip pain from his fall in mid-April. If you agree, we'll continue 3 more visits with hip treatment to return hip pain to prior level of pain. Thank you. Dr. Mina GAONA
[2018-08-10] MEDS ORDERED: OLAN2.5T3 PO (16:08)
[2018-08-10] MEDS ORDERED: LANI SUBQ (16:08)
[2018-08-10] MEDS ORDERED: OXYC-373 PO (17:49)
== END 2018-08-12 ==
LOC: PT 10:30
PROVIDERS: ATTEND Family Medicine
DX: M25.551 Pain in right hip (principal); M62.81 Muscle weakness (generalized); R29.6 Repeated falls; M54.2 Cervicalgia; I69.398 Other sequelae of cerebral infarction; R56.9 Unspecified convulsions; N18.9 Chronic kidney disease, unspecified; E11.22 Type 2 diabetes mellitus with diabetic chronic kidney disease; I12.0 Hypertensive chronic kidney disease with stage 5 chronic kidney disease or end stage renal disease
CPT/HCPCS: 97162

== ENCOUNTER 2018-08-10 15:35 | Emergency (ER) | payer MEDICARE, MEDICAID ==
[2015-10-18 10:34] VITALS: Wt 90.9 kg
[2018-08-10] MEDS ORDERED: OLAN2.5T3 PO (16:08)
[2018-08-10] MEDS ORDERED: LANI SUBQ (16:08)
[2018-08-10 16:31] LABS: PLATELET COUNT, AUTOMATED 128 K/uL (150-450)
[2018-08-10 16:41] LABS: INR 2.85
--- NOTE | 2018-08-10 17:11 | ER Report ---
History and Physical Time Seen By MD: 16:00 Hx. of Stated Complaint: NOTICED PAIN IN LLE YESTERDAY. SWOLLEN RED HOT AND BRUISED HPI/ROS CHIEF COMPLAINT: leg pain, swelling, bruising HISTORY OF PRESENT ILLNESS: 63 y/o m presents with extremity swelling. He was seen by pain doctor today for ongoing pain throughout extremities; doctor noted left lower extremity bruising upon exam. Upon review of systems, pt had noted to family in past 2 d that he's had increasing pain, and bruising in this extremity compared to others. He has hx of PE, FVL, and is on coumadin; no prior DVT. No cp, sob, fever, chills. Denies trauma, injury REVIEW OF SYSTEMS: Constitutional: No fever, no chills. Eyes: no blurred vision ENT: No sore throat. Cardiovascular: No chest pain, no palpitations. Respiratory: No cough, no shortness of breath. Gastrointestinal: No abdominal pain, no vomiting. Genitourinary: no dysuria Musculoskeletal: No back pain. Skin: left lower extremity brusing/rash/swelling Neurological: No headache. Remainder of the 14 system rev: Yes Allergies: Coded Allergies: zolpidem (Verified Adverse Reaction, Severe, CONFUSION AND SUICIDAL IDEATION, 06/29/18) confusion and suicide ideation per patient report Home Meds Active Scripts Potassium Chloride (KLOR-CON M20) 20 Meq Tab.er.prt, 20 MEQ PO QDAY, #30 TAB Prov:LUIS MARTIN HAND WELT BUTTER 05/04/18 Fluticasone Prop 50 Mcg Ns (FLONASE 50 MCG NS) 16 Gm [place].susp, 1 SPRAY NS BID, #1 BOT Prov:RAHEEM STEIN HAND WELT BUTTER 04/19/16 Reported Medications Olanzapine (OLANZAPINE) 2.5 Mg Tablet, 2.5 MG PO QDAY 08/10/18 Insulin Glargine (LANTUS) 100 Unit/Ml Soln, 42 UNIT SUBQ HS, ML 08/10/18 Amlodipine Besylate (AMLODIPINE BESYLATE) 10 Mg Tablet, 1 TAB PO QDAY, TAB 05/03/18 Paroxetine Hcl (PAROXETINE HCL) 40 Mg Tablet, 40 MG PO QDAY 05/03/18 Calcitriol (CALCITRIOL) 0.25 Mcg Cap, 0.25 MCG PO 3XW, CAP 05/03/18 Omeprazole (OMEPRAZOLE) 40 Mg Capsule.dr, 40 MG PO QDAY, CAP 05/03/18 Warfarin Sodium (WARFARIN SODIUM) 5 Mg Tablet, 5 MG PO SuTuThSa, TAB 05/03/18 Warfarin Sodium (WARFARIN SODIUM) 5 Mg Tablet, 2.5 MG PO MOWEDFRI, TAB 05/03/18 Ferrous Sulfate (IRON) 325 Mg Tablet, 325 MG PO DAILY 09/16/15 Oxygen (OXYGEN) Inha, 2 L INH PRN for SHORTNESS OF BREATH, L 09/16/15 Sodium Bicarbonate (SODIUM BICARBONATE) 325 Mg Tablet, 650 MG PO BID 02/06/15 Atorvastatin (LIPITOR) 80 Mg Tab, 1 TAB PO HS, TAB 10/31/14 Insulin Lispro 100 Un/Ml Vial (HUMALOG 100 U/ML VIAL) 100 Unit/1 Ml Vial, 25 UNIT SQ BEFORE MEALS, VIAL 11/19/13 Levetiracetam (Keppra) 500 Mg Tablet, 500 MG PO QID, 0 Refills 02/03/11 Multivitamins W-Minerals (Multiple Vitamin) 1 Tab Tablet, 1 TAB PO DAILY, 0 Refi lls 09/03/10 Discontinued Reported Medications Insulin Glargine (LANTUS) 100 Unit/Ml Soln, 50 UNIT SUBQ QHS 11/19/13 Discontinued Scripts Cephalexin 500 Mg Tab (KEFLEX 500 MG TAB) 500 Mg Tablet, 500 MG PO TID, #21 TAB Prov:RAHEEM STEIN HAND WELT BUTTER 06/29/18 Reviewed Nurses Notes: Yes Old Medical Records Reviewed: Yes Hx Smoking: No Smoking Status: Never Smoker Exposure to Second Hand Smoke?: No Hx Substance Use Disorder: No Hx Alcohol Use: No (20 YRS AGO) Constitutional Vital Sign - Last 24 Hours 08/10/18 15:51 Temp 98.5 Pulse 98 Resp 18 B/P (MAP) 138/91 Pulse Ox 88 O2 Delivery Room Air Physical Exam General Appearance: The patient is alert, has no immediate need for airway protection and no signs of toxicity. Eyes: Pupils equal and round no pallor or injection. ENT, Mouth: Mucous membranes are moist. Respiratory: There are no retractions, lungs are clear to auscultation. Cardiovascular: Regular rate and rhythm. Gastrointestinal: Abdomen is soft and non tender, no masses, bowel sounds normal. Neurological: alert, oriented Skin: left lower extremity; small punctate ecchymosis medial distal thigh, no thigh/knee swelling. Significant ecchymosis lower left leg; including anterior carrasco with apparent 5x8cm hematoma. No e/o cellulitis. Musculoskeletal: Extremities are nontender, nonswollen and have full range of motion other than LLE as above. DIFFERENTIAL DIAGNOSIS: After history and physical exam differential diagnosis was considered for dvt, hematoma, galdino, fracture, dislocation, cellulitis, or o ther emergent etiology. Medical Decision Making Data Points Result Diagram: 08/10/18 1555 08/10/18 1555 Laboratory Hematology Test 08/10/18 15:55 Red Blood Count 4.71 M/uL (4.00-5.60) Mean Corpuscular Volume 89.9 fL (80.0-96.0) Mean Corpuscular Hemoglobin 29.7 pg (26.0-33.0) Mean Corpuscular Hemoglobin Concent 33.0 g/dL (32.0-36.0) Red Cell Distribution Width 13.9 % (11.5-14.5) Mean Platelet Volume 8.5 fL (7.2-11.1) Neutrophils (%) (Auto) 60.2 % (39.4-72.5) Lymphocytes (%) (Auto) 27.9 % (17.6-49.6) Monocytes (%) (Auto) 7.0 % (4.1-12.4) Eosinophils (%) (Auto) 4.2 % (0.4-6.7) Basophils (%) (Auto) 0.7 % (0.3-1.4) Nucleated RBC Relative Count (auto) 0.0 /100WBC Neutrophils # (Auto) 3.1 K/uL (2.0-7.4) Lymphocytes # (Auto) 1.4 K/uL (1.3-3.6) Monocytes # (Auto) 0.4 K/uL (0.3-1.0) Eosinophils # (Auto) 0.2 K/uL (0.0-0.5) Basophils # (Auto) 0.0 K/uL (0.0-0.1) Nucleated RBC Absolute Count (auto) 0.00 K/uL Prothrombin Time 30.5 seconds (12.0-14.4) Prothromb Time International Ratio 2.85 Activated Partial Thromboplast Time 95 seconds (23-35) Sodium Level 140 mmol/L (137-145) Potassium Level 3.6 mmol/L (3.5-5.0) Chloride Level 109 mmol/L (98-107) Carbon Dioxide Level 18 mmol/L (22-30) Blood Urea Nitrogen 20 mg/dl (9-21) Creatinine 2.70 mg/dl (0.66-1.25) Glomerular Filtration Rate Calc 23.8 Random Glucose 160 mg/dl (75-110) Calcium Level 9.2 mg/dl (8.4-10.2) Total Bilirubin 0.6 mg/dl (0.2-1.3) Aspartate Amino Transf (AST/SGOT) 55 U/L (0-35) Alanine Aminotransferase (ALT/SGPT) 48 U/L (0-56) Alkaline Phosphatase 223 U/L (0-126) Total Protein 6.9 g/dl (6.3-8.2) Albumin 4.0 g/dl (3.5-5.0) Chemistry Test 08/10/18 15:55 White Blood Count 5.1 k/uL (4.5-11.0) Red Blood Count 4.71 M/uL (4.00-5.60) Hemoglobin 14.0 g/dL (14.0-18.0) Hematocrit 42.3 % (42.0-52.0) Mean Corpuscular Volume 89.9 fL (80.0-96.0) Mean Corpuscular Hemoglobin 29.7 pg (26.0-33.0) Mean Corpuscular Hemoglobin Concent 33.0 g/dL (32.0-36.0) Red Cell Distribution Width 13.9 % (11.5-14.5) Platelet Count 128 K/uL (150-450) Mean Platelet Volume 8.5 fL (7.2-11.1) Neutrophils (%) (Auto) 60.2 % (39.4-72.5) Lymphocytes (%) (Auto) 27.9 % (17.6-49.6) Monocytes (%) (Auto) 7.0 % (4.1-12.4) Eosinophils (%) (Auto) 4.2 % (0.4-6.7) Basophils (%) (Auto) 0.7 % (0.3-1.4) Nucleated RBC Relative Count (auto) 0.0 /100WBC Neutrophils # (Auto) 3.1 K/uL (2.0-7.4) Lymphocytes # (Auto) 1.4 K/uL (1.3-3.6) Monocytes # (Auto) 0.4 K/uL (0.3-1.0) Eosinophils # (Auto) 0.2 K/uL (0.0-0.5) Basophils # (Auto) 0.0 K/uL (0.0-0.1) Nucleated RBC Absolute Count (auto) 0.00 K/uL Prothrombin Time 30.5 seconds (12.0-14.4) Prothromb Time International Ratio 2.85 Activated Partial Thromboplast Time 95 seconds (23-35) Glomerular Filtration Rate Calc 23.8 Calcium Level 9.2 mg/dl (8.4-10.2) Total Bilirubin 0.6 mg/dl (0.2-1.3) Aspartate Amino Transf (AST/SGOT) 55 U/L (0-35) Alanine Aminotransferase (ALT/SGPT) 48 U/L (0-56) Alkaline Phosphatase 223 U/L (0-126) Total Protein 6.9 g/dl (6.3-8.2) Albumin 4.0 g/dl (3.5-5.0) Coagulation Test 08/10/18 15:55 Prothrombin Time 30.5 seconds Prothromb Time International Ratio 2.85 Activated Partial Thromboplast Time 95 seconds ED Course/Re-evaluation ED Course Pt presents with LLE swelling. Has hematoma, without e/o active bleeding, traumatic v spontaneous, of note pt has been taking ibuprofen daily which may have led to spont bleed. D/c with SRP's. Pt and family comfortable with this plan. Decision to Disposition Date: Aug 10, 2018 Decision to Disposition Time: 17:51 Depart Departure Latest Vital Signs Vital Signs Date Time Temp Pulse Resp B/P (MAP) Pulse Ox O2 Delivery O2 Flow Rate FiO2 08/10/18 15:51 98.5 98 18 138/91 88 Room Air Impression: Primary Impression: Leg hematoma Condition: Improved Disposition: HOME OR SELF-CARE Referrals: LOPEZ DOMÍNGUEZ MD (PCP) 5 Days New Scripts Oxycodone Hcl/Acetaminophen (OXYCODONE-ACETAMINOPHEN 5-325) 1 Each Tablet 1 EACH PO Q4-6H for PAIN, #14 TAB Prov: TED CANADA MD 08/10/18 Patient Instructions: Hematoma (ED) Additional Instructions: As we discussed, you may not take ibuprofen while on warfarin. This may have led to your hematoma. I recommend you skip tomorrow's dose of warfarin but then start again on Monday. Ice 20 minutes at a time every hour. Please return immed iately if you lose feeling in the foot, have uncontrolled pain, concerning swelling, or any concerns. Please follow-up with your primary doctor the beginning of next week for reevaluation. Problem Qualifiers Primary Impression: Leg hematoma Encounter type: initial encounter Laterality: left Qualified Codes: S80.12XA - Contusion of left lower leg, initial encounter TED CANADA MD Aug 10, 2018 17:11
[2018-08-10 17:30] VITALS: BP 119/83
[2018-08-10] MEDS ORDERED: MORPHINE 4 MG/ML SDV IVP ONE (17:30)
--- NOTE | 2018-08-10 17:36 | RADIOLOGY IMAGING REPORT ---
FACILITY: [facility] PATIENT NAME: Christian Kay : 1955 MR: [id number] V: [id number] EXAM DATE: ORDERING PHYSICIAN: TED CANADA TECHNOLOGIST: Location: [place] [facility] - [place] Patient: Christian Kay : 1955 Visit/Account:[id number] Date of Sevice: 08/10/2018 US VENOUS LOWER EXT LT HISTORY: edema, ecchymosis COMPARISON: None. FINDINGS: Grayscale, duplex and color Doppler interrogation of the left lower extremity deep veins from common femoral vein to proximal calf was completed. The greater saphenous vein in the proximal thigh was david luated using similar technique. Common femoral vein - Negative. Femoral vein - Negative. Deep femoral vein - Negative. Popliteal vein - Negative. Visualized deep calf veins - nonvisualized Popliteal fossa: Negative. Greater saphenous vein in the proximal thigh: Negative. Within the posterior superior calf, there is a large hematoma present measuring 5.9 x 2.1 x 5.8 cm. IMPRESSION: Large calf hematoma, no evidence of DVT is identified. Report Dictated By: Ike Person at 08/10/2018 5:29 PM Report E-Signed By: Ike Person at 08/10/2018 5:31 PM WSN:[email or web address]
[2018-08-10] MEDS ORDERED: OXYC-373 PO (17:49)
== END 2018-08-10 18:20 | disposition home or self-care (01) ==
LOC: ER 15:52
DX: S80.12XA Contusion of left lower leg, initial encounter (principal)
CPT/HCPCS: 85025; 85610; 85730; 93971; 96374; 99284; J2270; 82040; 82247; 82310; 82374; 82435; 82565; 82947; 84075; 84132; 84155; 84295; 84450; 84460; 84520

== ENCOUNTER → 2018-08-24 | Outpatient (REF) | payer MEDICARE, MEDICAID ==
[2015-10-18 10:34] VITALS: BMI 29.1
[~2018-08-24] MED LIST changes: +OLAN2.5T3 PO; +OXYC-373 PO
[2018-08-24 13:11] LABS: INR 4.67
== END ==
LOC: ZZSENDIN 12:04
PROVIDERS: ATTEND Family Medicine
DX: Z79.01 Long term (current) use of anticoagulants (principal)
CPT/HCPCS: 85610

== ENCOUNTER → 2018-08-27 | Outpatient (REF) | payer MEDICARE, MEDICAID ==
[2015-10-18 10:34] VITALS: BMI 29.1
[2018-08-27 12:11] LABS: INR 4.07
== END ==
LOC: ZZSENDIN 11:53
PROVIDERS: ATTEND Family Medicine
DX: Z51.81 Encounter for therapeutic drug level monitoring (principal); Z79.01 Long term (current) use of anticoagulants
CPT/HCPCS: 85610